=== PATIENT | female | born 1940 | race Caucasian/White ===

== ENCOUNTER → 2017-11-17 09:15 | Outpatient (CLI) | payer OTHER, SELFPAY ==
[2017-11-17 09:55] LABS: Alanine Aminotransferase 25 IU/L (9-52); Albumin Globulin Ratio 1.4 (1.0-2.8); Alkaline Phosphatase 51 U/L (38-126); Aspartate Aminotransferase 25 IU/L (14-36); BUN Creatinine Ratio 23.3 (6-22); Bilirubin Total 0.5 mg/dL (0.2-1.3); Blood Urea Nitrogen 14 mg/dL (7-17); Carbon Dioxide 30 mmol/L (22-32); Chloride 102 mmol/L (98-107); Cholesterol 173 mg/dL (140-199); Estimated Glomerular Filt Rate > 60.0 mL/min (>60); Globulin 2.8 g/dL (1.7-4.1); Glucose 83 mg/dL (80-110); HDL Cholesterol 68 mg/dL (40-60); HEMOLYSIS < 15 (0-50); LDL Cholesterol Calculated 89 mg/dL (<100); Sodium 140 mmol/L (137-145); Total Protein 6.8 g/dL (6.3-8.2); Triglycerides 80 mg/dL (35-150)
== END ==
PROVIDERS: PCP Physician Assistant; Visit Provider Physician Assistant
DX: E78.5 Hyperlipidemia, unspecified (principal)
CPT/HCPCS: 36415; 80053; 80061

== ENCOUNTER → 2018-05-04 12:11 | Outpatient (CLI) | payer OTHER, SELFPAY ==
[2018-05-04 12:46] LABS: Add Manual Diff / Slide Review NO; Basophils Percent Auto 1.1 % (0-2); Hematocrit 38.9 % (36-46); Hemoglobin 13.2 g/dL (12.0-16.0); Lymphocytes Percent Auto 38.4 % (25-40); Mean Corpuscular Hemoglobin 30.9 PG (26-34); Monocytes Percent Auto 8.9 % (3-14); Neutrophils Absolute Auto 2100 /uL (3000-5900); Neutrophils Percent Auto 43.6 % (50-75); Platelet Count 256 X10^3/uL (150-400); Red Blood Cell Count 4.28 X10^6/uL (4.0-5.2); Red Cell Distribution Width 13.8 % (11.6-14.8); White Blood Cell Count 4.9 X10^3/uL (4.5-11.0)
[2018-05-04 12:57] LABS: Alanine Aminotransferase 25 IU/L (9-52); Albumin 4.3 g/dL (3.5-5.0); Albumin Globulin Ratio 1.5 (1.0-2.8); Alkaline Phosphatase 58 U/L (38-126); Aspartate Aminotransferase 33 IU/L (14-36); BUN Creatinine Ratio 24.3 (6-22); Bilirubin Total 0.6 mg/dL (0.2-1.3); Blood Urea Nitrogen 17 mg/dL (7-17); Calcium 9.1 mg/dL (8.4-10.2); Carbon Dioxide 29 mmol/L (22-32); Chloride 104 mmol/L (98-107); Cholesterol 188 mg/dL (140-199); Estimated Glomerular Filt Rate > 60.0 mL/min (>60); Globulin 2.8 g/dL (1.7-4.1); Glucose 86 mg/dL (80-110); HDL Cholesterol 77 mg/dL (40-60); HEMOLYSIS < 15 (0-50); LDL Cholesterol Calculated 101 mg/dL (<100); Potassium 4.1 mmol/L (3.4-5.1); Sodium 145 mmol/L (137-145); Total Protein 7.1 g/dL (6.3-8.2); Triglycerides 50 mg/dL (35-150)
[2018-05-04 13:29] LABS: Thyroid Stimulating Hormone 1.85 uIU/mL (0.47-4.68)
[2018-05-04 13:46] LABS: Vitamin B12 847 pg/mL (239-931)
[2018-05-04 14:56] LABS: Vitamin D 25 Hydroxy (D3) 34.9 ng/mL (30.0-100.0)
== END ==
PROVIDERS: Family Provider Naturopath; PCP Physician Assistant; Visit Provider Physician Assistant
DX: R53.83 Other fatigue (principal); E78.5 Hyperlipidemia, unspecified
CPT/HCPCS: 36415; 80053; 80061; 82306; 82607; 84443; 85025

== ENCOUNTER → 2018-05-04 12:55 | Outpatient (CLI) | payer OTHER, SELFPAY ==
--- NOTE | 2018-05-04 12:57 | DI.RAD.S_ITS ---
PROCEDURE: XR CHEST 2V INDICATIONS: Rib pain, fatigue TECHNIQUE: 2 views of the chest were acquired. COMPARISON: Merged with [facility], CHEST 1 VIEW, 06/25/2017, 15:00. Merged with [facility], CHEST 2 VIEW, 02/13/2016, 11:24. FINDINGS: Surgical changes and devices: None. Lungs and pleura: No pleural effusions or pneumothorax. Lungs are clear. Mediastinum: Mediastinal contours are normal. Heart size is normal. Bones and chest wall: No suspicious bony abnormalities. Soft tissues appear unremarkable. IMPRESSION: Normal for age, source of current symptoms is not seen. Dictated by: Lukas Garvey M.D. on 05/04/2018 at 13:28 Approved by: Lukas Garvey M.D. on 05/04/2018 at 13:38
== END ==
PROVIDERS: Family Provider Naturopath; PCP Physician Assistant; Visit Provider Physician Assistant
DX: R07.81 Pleurodynia (principal); R53.83 Other fatigue; E78.5 Hyperlipidemia, unspecified
CPT/HCPCS: 36415; 71046; 80053; 80061; 82306; 82607; 84443; 85025

== ENCOUNTER → 2018-05-27 10:57 | Outpatient (CLI) | payer OTHER, SELFPAY ==
--- NOTE | 2018-05-27 | DI.MG.S_ITS ---
BILATERAL DIGITAL SCREENING MAMMOGRAM 3D/2D WITH CAD: 05/27/2018 CLINICAL: Routine screening. Comparison is made to exams dated: 05/24/2017 mammogram, 05/13/2016 mammogram, and 04/08/2014 mammogram - [facility]. The tissue of both breasts is heterogeneously dense. This may lower the sensitivity of mammography. Current study was also evaluated with a Computer Aided Detection (CAD) system. There are benign vascular calcifications in both breasts. There is a mole marker on both breasts. No significant masses, calcifications, or other findings are seen in either breast. There has been no significant interval change. IMPRESSION: There is no mammographic evidence of malignancy. A 1 year screening mammogram is recommended. This exam was interpreted at Station ID: [id number]. NOTE: For mammograms, a report in lay terms will be sent to the patient. Approximately 15% of breast malignancies will not be visualized mammographically. In the management of a palpable breast mass, a negative mammogram must not discourage biopsy of a clinically suspicious lesion. Electronically Signed By: Avel mayberry/christen:05/29/2018 17:28:29 letter sent: Normal Exam ACR BI-RADS Category 2: Benign Finding(s) 3342F
== END ==
PROVIDERS: PCP Physician Assistant; Visit Provider Physician Assistant
DX: Z12.31 Encounter for screening mammogram for malignant neoplasm of breast (principal)
CPT/HCPCS: 77063; 77067

== ENCOUNTER → 2018-08-11 14:49 | Outpatient (CLI) | payer OTHER, SELFPAY ==
[2018-08-11 15:30] LABS: Add Manual Diff / Slide Review NO; Basophils Absolute Auto 0 /uL (0-100); Basophils Percent Auto 0.8 % (0-2); Eosinophils Absolute Auto 400 /uL (0-450); Eosinophils Percent Auto 6.8 % (2-4); Hemoglobin 13.1 g/dL (12.0-16.0); Lymphocytes Absolute Auto 1600 /uL (1100-4500); Mean Corpuscular HGB Conc 33.6 % (30-36); Mean Corpuscular Hemoglobin 30.7 PG (26-34); Mean Corpuscular Volume 91.2 fL (80-100); Monocytes Absolute Auto 600 /uL (0-900); Monocytes Percent Auto 11.1 % (3-14); Neutrophils Absolute Auto 2800 /uL (1500-7000); Neutrophils Percent Auto 52.3 % (50-75); Platelet Count 252 X10^3/uL (150-400); Red Blood Cell Count 4.27 X10^6/uL (4.0-5.2); Red Cell Distribution Width 14.2 % (11.6-14.8); White Blood Cell Count 5.4 X10^3/uL (4.5-11.0)
[2018-08-11 15:50] LABS: Uric Acid 4.7 mg/dL (2.5-6.2)
[2018-08-11 16:06] LABS: Erythrocyte Sedimentation Rate 11 MM/HR (0-20)
[2018-08-11 16:15] LABS: C-Reactive Protein Quant < 0.5 mg/dL (<1.0); Rheumatoid Factor < 8.6 IU/mL (<12.0)
[2018-08-14 19:29] LABS: ANA Screen, IFA Negative (Negative)
== END ==
PROVIDERS: PCP Physician Assistant; Visit Provider Orthopaedic Surgery
DX: M67.442 Ganglion, left hand (principal); M18.10 Unilateral primary osteoarthritis of first carpometacarpal joint, unspecified hand
CPT/HCPCS: 36415; 84550; 85025; 85651; 86038; 86140; 86430

== ENCOUNTER → 2019-01-18 13:09 | Outpatient (CLI) | payer OTHER, SELFPAY ==
--- NOTE | 2019-01-18 | DI.MRI.S_ITS ---
PROCEDURE: MR CERVICAL SPINE WO CON INDICATIONS: FACIAL NUMBNESS TECHNIQUE: Noncontrast sagittal T1 spin echo and T2 fast spin echo, sagittal STIR, foraminal oblique sagittal T2 fast spin echo, and axial gradient echo or T2 fast spin echo through the cervical spine. COMPARISON: [facility], , C-SPINE WITHOUT CONTRAST, 08/12/2014, 17:38. FINDINGS: Image quality: Excellent. Alignment and Curvature: Straightening of the normal lordotic curvature. Grade 1 anterolisthesis of C2 on C3 and C3 on C4 Bone Marrow: Multilevel degenerative endplate sclerosis and spurring. Diffuse facet arthropathy. Spinal Cord: Visualized spinal cord has normal size and signal. No cerebellar tonsillar herniation. Paraspinous Soft Tissues: No paravertebral masses. Prevertebral soft tissues are normal in thickness. C2-C3: Ligamentum flavum hypertrophy. Mild central canal narrowing. Mild left foraminal stenosis probably unchanged. No right foraminal narrowing C3-C4: Moderate canal stenosis, with slight interval progression since the prior study. Moderate right foraminal stenosis which is mildly progressed. Unchanged mild left foraminal narrowing C4-C5: Moderate predominantly right-sided canal stenosis as before. Severe right foraminal narrowing with nerve root compression. Moderate left-sided foraminal stenosis. C5-C6: Mild to moderate canal narrowing, mild asymmetry right greater than left. This appears grossly unchanged. Severe right foraminal stenosis with nerve root compression. Moderate left foraminal narrowing C6-C7: Mild canal narrowing. Mild bilateral foraminal stenoses C7-T1: No canal stenosis. Mild bilateral foraminal narrowing IMPRESSION: Slight interval progression of moderate C3-C4 canal stenosis since the prior study. Elsewhere, grossly unchanged examination as detailed above by spinal level. Dictated by: Jann Gusman M.D. on 01/18/2019 at 15:05 Approved by: Jann Gusman M.D. on 01/18/2019 at 15:13
--- NOTE | 2019-01-18 | DI.MRI.S_ITS ---
PROCEDURE: MR HEAD/BRAIN WO CON INDICATIONS: FACIAL NUMBNESS TECHNIQUE: Non-contrast axial T1 spin echo, axial T2 fast spin echo, sagittal and axial FLAIR, coronal T2 fast spin echo, axial gradient echo, axial diffusion and ADC through the brain. COMPARISON: None. FINDINGS: Image quality: Excellent. CSF spaces: Ventricles appear symmetric in size and shape. Basal cisterns are patent. No extra-axial fluid collections. Brain: No intracranial bleeds or mass effects. There is cerebral volume loss for age. There are periventricular and deep white matter chronic small vessel ischemic changes. Brainstem appears normal. Diffusion-weighted images show no acute ischemic insults. No chronic ischemic insults. Normal intravascular flow voids are present. Skull and face: Calvarial bone marrow is normal in signal. Orbits are normal. Sinuses: Sinuses and mastoids are clear. IMPRESSION: No evidence of acute ischemia. Diffuse small white matter signal changes, probably represent chronic microvascular ischemic disease, versus statistically less likely demyelination or other infectious, inflammatory, neurodegenerative etiology, technically nonspecific. Dictated by: Jann Gusman M.D. on 01/18/2019 at 15:01 Approved by: Jann Gusman M.D. on 01/18/2019 at 15:05
== END ==
PROVIDERS: Family Provider Physician Assistant; PCP Physician Assistant; Visit Provider Physical Medicine & Rehabilitation
DX: R20.0 Anesthesia of skin (principal); M48.02 Spinal stenosis, cervical region
CPT/HCPCS: 70551; 72141

== ENCOUNTER → 2019-03-14 15:20 | Outpatient (CLI) | payer OTHER, SELFPAY ==
[2019-03-14 16:27] LABS: Hematocrit 38.3 % (36-46); Hemoglobin 12.9 g/dL (12.0-16.0); Mean Corpuscular HGB Conc 33.7 % (30-36); Mean Corpuscular Hemoglobin 30.6 PG (26-34); Mean Corpuscular Volume 90.6 fL (80-100); Platelet Count 280 X10^3/uL (150-400); Red Blood Cell Count 4.23 X10^6/uL (4.0-5.2); Red Cell Distribution Width 14.2 % (11.6-14.8); White Blood Cell Count 5.5 X10^3/uL (4.5-11.0)
[2019-03-14 17:07] LABS: BUN Creatinine Ratio 28.3 (6-22); Blood Urea Nitrogen 17 mg/dL (7-17); Calcium 9.8 mg/dL (8.4-10.2); Carbon Dioxide 30 mmol/L (22-32); Chloride 101 mmol/L (98-107); Estimated Glomerular Filt Rate > 60.0 mL/min (>60); Glucose 90 mg/dL (80-110); HEMOLYSIS < 15 (0-50); Potassium 4.6 mmol/L (3.4-5.1); Sodium 138 mmol/L (137-145)
== END ==
PROVIDERS: Family Provider Physician Assistant; PCP Physician Assistant; Visit Provider Orthopaedic Surgery Orthopaedic Surgery of the Spine
DX: Z01.818 Encounter for other preprocedural examination (principal)
CPT/HCPCS: 36415; 80048; 85027; 93005

== ENCOUNTER 2019-04-03 06:06 | Inpatient (IN) | payer OTHER, SELFPAY ==
[2019-03-28 13:32] VITALS: BMI 22.1
[2019-04-03] VITALS (20 sets, daily range): BP systolic 109–139; BP diastolic 58–78; PULSE 17–78; RESP 12–17; TEMP 36.1–36.7; O2SAT 91–98; BMI 21.2
--- NOTE | 2019-04-03 | DI.RAD.S_ITS ---
PROCEDURE: XR CERVICAL SPINE 2V OR 3V INDICATIONS: C 3-4-5-6 ACDF. TECHNIQUE: 2 view(s) of the cervical spine were acquired. COMPARISON: None. FINDINGS: Spot fluoroscopic intraoperative images demonstrating ACDF from the level of C3-C6. There is expected intraoperative alignment. Dictated by: Jann Gusman M.D. on 04/03/2019 at 11:06 Approved by: Jann Gusman M.D. on 04/03/2019 at 11:07
[2019-04-03] MEDS: LACTATED RINGERS 1,000 ML 42 ML IV ×2 (06:45→11:14)
--- NOTE | 2019-04-03 07:40 | PM.PREOP ---
Pre-operative Note Interval Note History & Physical reviewed/Exam performed by Physician: Yes Changes to H&P: No
[2019-04-03] MEDS: CEFAZOLIN 2 GM/100 ML FROZ.PIGGY IV (07:56)
--- NOTE | 2019-04-03 08:40 | SUR.OPER ---
Supine on padded OR bed, head on gel donut, arms papoosed with gel pads, draw sheet secured with towel clips. Towel roll between shoulders vertically. Taped from shoulders to foot of bed, safety belt at thigh, tape over blanket over lower legs.
--- NOTE | 2019-04-03 10:48 | P.OP_ITS ---
Operative Date/Time/Diagnoses Date of procedure: 04/03/19 Time of procedure: 08:11 Pre-op diagnosis: 1. C3-4, C4-5, C5-6 spondylolisthesis 2. C3-4, C4-5, C5-6 spinal stenosis Post-op diagnosis: same Procedure & Clinicians Procedure: 1. C3-4, C4-5, C5-6 anterior cervical diskectomy and fusion 2. C3-4, C4-5, C5-6 anterior interbody cage placement 3. C3-4, C4-5, C5-6 anterior instrumentation with plate and screw placement in C3, C4-C5-C6 vertebrae 4. Utilization of microsurgical technique and operating microscope Same procedure as scheduled: Yes Indications: Patient has been having chronic neck pain and worsening cervical radiculopathy. Patient failed multiple conservative management with worsening pain weakness and numbness in her upper extremity. Patient has been having difficulty performing activity of daily living. After discussing risks benefits of treatment options, patient elected proceed with surgery. Surgeon: Lane Stevens Cre[employer] Cutting Press Feeder: Marilin Landa Click Yes if Unassisted: No Anesthesia Type: General Operative Notes Closure Type: primary Specimen(s): none sent Prosthetic devices, grafts, tissues, transplants, or devices: Globus Extend plate, Peek cages Estimated Blood Loss (mL): 30 Blood products transfused: none Procedure in detail: Patient was seen in the preoperative area. Risks and benefits of the surgery was discussed with the patient. Operative consent was obtained and placed in the chart. Patient was then taken to the operative room. Prophylactic antibiotic was given less than 0.5 hr prior to skin incision. General anesthesia was administered. Patient was placed into a supine position on her radiolucent table. Bilateral shoulders were taped down to allow proper C- arm imaging. Anterior cervical area was prepped and draped in a sterile fashion. Time-out was performed at this time. Using lateral C-arm imaging, the level between C3 and C6 was identified and marked on patient's neck. A oblique incision from midline towards medial border of sternocleidomastoid muscle was made. The platysma muscle was incised in line with skin incision. Metzenbaum scissor was used to develop the plane between the medial border of sternocleidomastoid d and the strap muscles medially. The carotid sheath and its contents were identified and protected behind the hand- held retractor during the entire case. The plane between the carotid sheath and strap muscles was developed with Metzenbaum scissors. Dissection was made down to the level of the anterior cervical fascia. Longus colli muscle was incised on the anterior aspect of vertebral bodies bilaterally from C3-C6. Spinal needle was placed into the C3-4 disc space and confirmed with lateral C-arm imaging. Using microsurgical technique and operative microscope, anterior cervical diskectomy was performed at C3-4 C4-5 and C5-6 level. This was done by removing the disc material, removing the anterior and posterior osteophytes posterior longitudinal ligaments along with performing bilateral foraminotomies at all 3 levels. Patient was found to have severe central and foraminal stenosis at all 3 levels. Patient's stenosis was fully decompressed after decompression was completed. After the diskectomy was completed, 3 anterior interbody cages were obtained. The cages were packed with globus via cell bone grafting material. One cage each along with the bone grafting material was then packed into the interbody spaces from C3-C6 with one cage into each interbody level. After the cages were placed, the anterior cervical plate was stabilized to the C3-C6 vertebrae using 2 screws at each each level. Total 8 screws were placed. After confirming placement of the hardware with AP and lateral C-arm imaging, the screws were locked into the plate using the locking mechanism and torque limiting screwdriver. After the hardware was placed and confirmed with AP and lateral C-arm imaging, the wound was irrigated with sterile normal saline. The platysma muscle and the subcutaneous tissue was closed with 2-0 Vicryl. The skin was closed with 4-0 Monocryl and Steri-Strips. Patient tolerated the procedure well. Patient was transferred recovery room in stable condition. There were no complications. Complications: none Post-operative Condition: stable Disposition: PACU Plan for aftercare: Admit to inpatient hospital
[2019-04-03] MEDS: fentaNYL 100 MCG/2 ML INJ 50 MCG IV (11:35)
[2019-04-03] MEDS: SODIUM CHLORIDE 0.9% 1,000 ML 100 ML IV ×2 (12:24→22:24)
[2019-04-03] MEDS: HYDROMORPHONE 1 MG INJ 0.2 MG IV (12:35)
[2019-04-03] MEDS: OXYCODONE IR 5 MG TABLET PO ×2 (13:36→20:34)
[2019-04-03] MEDS: ACETAMINOPHEN 325 MG TABLET 650 MG PO ×2 (13:36→20:33)
--- NOTE | 2019-04-03 15:29 | PC.NURSE ---
Day Shift- Report rec'd from ELIJAH Flores in PACU at 1155. Pt arrived to unit at 1206 via bed into room 215 with all belongings. Pt FLAKITO, did not want her hearing aids in at this time. Oriented to call light, bed function, post op routines. Pt stated having 4-5/10 pain to back of night and mid to right shoulder. PRN IV dilaudid given at 1336 with little effect. Pt's family, son Bart and Arvin in to visit pt. After receiving prn Oxycodone at 1336 given by another RN with some food. Pt staed pain had decreased. Encouraged to have small bites of soft food and to chew well. Keep HOB elevated. Anterior gauze and tegaderm dressing CDI. Soft collar in place. Bed alarm on. Call light within reach.
[2019-04-03] MEDS: CEFAZOLIN 1 GM/50 ML FROZ.PIGGY IV ×2 (16:17→23:39)
--- NOTE | 2019-04-03 16:53 | PT.IIE ---
Current Diagnoses Other spondylosis with myelopathy, cervical region (04/03/19) Spinal stenosis, cervical region (04/03/19) Surgery Performed Operation Date: 04/03/19 07:45 Actual Procedures p C3-4, C4-5, C5-6 ACDF w/ anterior instrumentation - Lane Stevens MD Surgical History (Last Updated 03/28/19 @ 14:16 by Silvia Owens RN) H/O: hysterectomy (Acute ~1978) History of carpal tunnel surgery of left wrist (Acute ~09/2018) History of carpal tunnel surgery of right wrist (Acute ~2006) History of surgery (Acute ~2010) Hx of bilateral cataract extraction (Acute) Hx of bladder repair surgery (Acute) Hx of tonsillectomy (Acute) Hx of varicose vein stripping (Acute ~1988) Medical History (Last Updated 03/28/19 @ 14:16 by Silvia Owens RN) Arthritis (Acute) Melanoma (Acute ~2005) Physical Therapy Inpatient Evaluation/Re-Eval M1 PT/OT-IP Prior Functional Status Start: 04/03/19 12:56 Freq: NEEDED Status: Active Protocol: Document 04/03/19 16:24 AW (Rec: 04/03/19 16:52 AW [id number]) Medical Review Prior Functional Status Medical History Reviewed Yes Diet/Fluid Consistency Regular Communication Able to make needs known Mobility and Gait Pt was an independent ambulator for household distances and grocery store distances without assistive device. Activities of Daily Living and IADL's Independent Social History Household Members spouse Living Arrangements House Number of Floors (Floors) Two Floors Number of Stairs To Enter/Railing? 1 [place] with no railing. Enters on main level from garage and resides mostly on main level. 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 Her sewing room is also downstairs. There are 15 steps to the basement with left railing when going up. Home Environment High Toilet,Walk in Shower Home Equipment Front Wheel Walker,Straight Cane,Shower Seat with Backrest ,Grab Bars Near Toilet,Grab Bars In Shower Employment Status Retired Additional Social History Comment Pt lives with her spouse who has used a walker for all mobility ~5 years. Pt provides assistance to her with showering and lower body dressing. She also frequently loads and unloads his walker from the trunk. Her does the majority of the driving. M2 PT-IP Current Condition Start: 04/03/19 12:56 Freq: NEEDED Status: Active Protocol: Document 04/03/19 16:24 AW (Rec: 04/03/19 16:52 AW [id number]) Physical Therapy Current Condition Current Condition Evaluation Date 04/03/19 Treatment Diagnosis s/p C3-6 ACDF Onset Date 04/03/19 Precautions Cervical Spine Precautions Soft Collar for Comfort,No Heavy Lifting,Log Roll Brace soft collar for comfort only Weight Bearing Status Weight Bearing Status Full Weight Bearing M3 PT-IP Subjective Start: 04/03/19 12:56 Freq: NEEDED Status: Active Protocol: Document 04/03/19 16:24 AW (Rec: 04/03/19 16:52 AW [id number]) Subjective Physical Therapy Visit Type Type Initial Evaluation Visit Start Time 15:43 Visit Stop Time 16:21 Total Visit Minutes 38 Number of CARAMEL CUTTER HELPER Visits 0 Physical Therapy Visit Comments Patient Comments Pt is willing to work with therapy Patient Goals Pt hopes to return home at discharge Therapy Pain Assessment Pain When Pain Assessed At Rest Pain Present Pain Present Pain Reported Location Neck Intensity 3 Scale Used Numeric (1 - 10) Pain Management Techniques Re-positioning,Timing of Activity with Medications M4 PT-IP Mobility and Gait Start: 04/03/19 12:56 Freq: NEEDED Status: Active Protocol: Document 04/03/19 16:24 AW (Rec: 04/03/19 16:52 AW [id number]) PT-Bed Mobility Assessment Rolling Type of Rolling Log Rolling Level of Assist Contact Guard Assistance Supine to Sit Supine to Sit Contact Guard Assistance Scooting Scooting to Edge of Bed Standby Assistance PT-Transfer Assessment Sit to and From Stand Sit to and from Stand Contact Guard Assistance Equipment Transfer Assistive Device Gait Belt,Front Wheeled Walker Orthotic/Prosthetic Devices or Brace: No Transfers Transfer Destination Chair Transfer Technique Stand Step Pivot Transfer Ability Level of Assist Contact Guard Assistance Comments Mobility Comments Pt required CGA for all bed mobility and transfers. Verbal cues required for sequencing of log roll. Pt reported wooziness upon sitting. BP was 141/80 in supine, 135/76 in sitting with decreased symptoms after 2 minutes. Upon standing, pt again complained of lightheadedness. BP in standing was 126/80. Pt transferred stand step pivot with use of FWW and CGA to bedside chair. Left pt in chair, call light within reach , student nurse and nurse instructor attending to pt. RN made aware of pt's BP drop and symptoms. Also advised RN that a chair alarm would be appropriate for safety. Gait Assessment Gait Gait Assistance Required: Contact Guard Assist Distance (Feet) 2 Able to Maintain Weight Bearing Status Yes During Gait Assistive Devices Assistive Device Gait Belt,Front Wheeled Walker Orthotic/Prosthetic Devices or Brace: Yes Gait Deviations General Gait Pattern Antalgic,Decreased Stride Length,Decreased Feet Clearance,Flexed Trunk Factors Limiting Gait Function Factors Limiting Gait Function Decreased Activity Tolerance, Pain,Poor Balance Comments Gait Comments See mobility comments Stair Climbing Assessment Comments Stair Climbing Comments Not assessed. PT-Balance Assessment Sitting Balance and Reactions Static Sitting Balance Ability Good Dynamic Sitting Balance Ability Good Standing Balance and Reactions Static Standing Balance Ability Fair Dynamic Standing Balance Ability Fair Device Used FWW Comments Other Balance Tests/Deviations/Treatment Standing balance affected by : symptoms of lightheadedness. M5 PT-IP Objective Assessments Start: 04/03/19 12:56 Freq: NEEDED Status: Active Protocol: Document 04/03/19 16:24 AW (Rec: 04/03/19 16:52 AW [id number]) Orientation Orientation/Cognition Level of Alertness Alert Orientation Name,Day of Week,Place, Situation Language Function Ability No Deficits Noted Safety Awareness Decreased Safety Awareness Memory Description No Deficits Noted Comments Decreased safety awareness evident with pt requesting to use the toilet instead of BSC after experiencing lightheadedness and BP drop in standing. Gross Range of Motion Upper Extremity ROM Assessment Within Functional Limits Lower Extremity ROM Assessment Within Functional Limits Strength Upper Extremity Strength Assessment Within Functional Limits Lower Extremity Strength Assessment Within Functional Limits Coordination Assessment Gross Coordination Gross Coordination WNL Sensation Assessment Sensation Gross Sensation WNL M6 PT-IP Treatment Start: 04/03/19 12:56 Freq: NEEDED Status: Active Protocol: Document 04/03/19 16:24 AW (Rec: 04/03/19 16:52 AW [id number]) Physical Therapy Treatment Education Education Provided Precautions,Weight Bearing Status,Post-Op Packet,Safety Other Treatments Other Treatment Performed Reviewed PT plan of care and possible need for assistive device during early stages recovery due to impaired balance. M7 PT-IP Assessment and Plan Start: 04/03/19 12:56 Freq: NEEDED Status: Active Protocol: Document 04/03/19 16:24 AW (Rec: 04/03/19 16:52 AW [id number]) PT Summary Assessment and Plan Potential Rehabilitation Potential Good Status of Condition at Evaluation Evolving Summary Impairments Pain,Balance,Transfers,Gait, Activity Tolerance Assessment Summary Pt is a 79 yo woman seen on POD0 following C3-4, C4-5, C5- 6 ACDF. PLOF: Pt was independent with ambulation household and grocery store distances without use of AD. Of note, her uses a walker oyster unloader for mobility and is unable to provide much meaningful assist. Her sons have been visiting but are gone and not available to assist at discharge. Pt provides assistance to with some dressing and bathing tasks as well as transporting his walker. 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 CLOF: Pt required CGA for most mobility. She was limited at time of evaluation by drop in BP and associated lightheadedness. She will continue to require PT in this setting to further assess her gait and her ability on stairs as well as to provide further education and mobility training. Will continue to assess for discharge recommendation. Goals Bed Mobility Goal Independent Transfer Goal Standby Assistance Gait Goal Standby Assistance Gait Distance 150 Other Goals up/down 1 stair SBA Days to Meet Goals 3 Frequency of Treatment Frequency Of Treatment Twice a Day Treatment Plan Physical Therapy Treatment Plan Bed Mobility Training,Transfer Training,Gait Training, Therapeutic Exercise,Balance Retraining,Post Op Education, Discharge Planning,Hot or Cold Pack,Neuromuscular Re-ed, Coordination Retraining,Manual Therapy Other Recommendations and Next Treatment assess gait, stairs, reinforce Focus cervical post-op precautions, refine discharge recommendation Recommendations To Nursing Amount of Assist Needed 1 Person Assist Discharge Recommendations PT Discharge Recommendations Home with Assistance,Home Health,Outpatient PT Other Discharge Recommendations Home with assistance and HH vs OP PT
--- NOTE | 2019-04-03 17:33 | PC.NURSE ---
Addendum entered by Marissa Sosa 04/03/19 21:15: Patient states that the irritation in the right eye has subsided. Original Note: Eye Irritation: P: Patient complained of irritation and blurriness in her right eye. It feels like there is something there. I: This nursing home admissions director and her nursing scheduler flushed the pts eye with 5 mL of saline solution. E: Afterwards, patient stated, that the eye was feeling less irritation but still had mild blurriness. She said, I think you guys got it! Safety: Patient is sitting in a chair with a chair alarm on, call enrique within reach, and patient instructed to call for help if she needs to go back to bed.
[2019-04-03] MEDS: INFLUENZA VACCINE 0.5 ML SYRINGE IM (18:02)
--- NOTE | 2019-04-03 18:36 | CM.DANOTE ---
DCP assessment: EMR reviewed: Patient is a 79 yr old female who was admitted to for a cervical fusion surgery. PCP is Dr. Kirkland. CM met with patient at the bedside and explained CM role. Patient is alert and oriented x3 and is I at base line with all ADL's. Patient currently lives with her (Arvin)who is her DPOA. Patients is disabled and patient is her husbands primary caregiver. Currently her son Polo is here for a week to help with patients husbands care and bring patient home from the hospital . Cm asked patient what her plans were for when she D/c. Patient plans on D/C home with her son for a week. CM asked patient about HH options and patient stated she would like to think about it and discuss it with her tomorrow morning. DME: patient owns a FWW and bath bench. Patient has a two story home but lives on the top level and rents out the basement/ bottom floor on air B&B so she has no stairs she has to climb. Patient has a post op appt set up with her surgeon on april 13. OP PT will start after that. Insurance: [address] self pay Plan: D/C home with family vs D/c home with HH. patient wanted time to think about it. CM department to f/u with patient in the AM to determine if patient would like HH services at D/C. PT/OT evaluation pending. Prabha Rodriguez RN. Discharge Planning/Care Management CM Discharge Assessment Start: 04/03/19 18:31 Freq: Status: Active Protocol: Document 04/03/19 18:31 HS (Rec: 04/03/19 18:36 HS [id number]) Discharge Planning Assessment Assigned Mechanical Spreader Operator Prabha Rodriguez RN DPOA/Assigned Designee Name Arvin Smiley () Contact Information [phone] Advance Directives? Yes Advance Directives on File Yes History Provided By Patient Has Patient been admitted in last 30 No days? Prior Living Arrangements House Household Members spouse Comment patient lives with her who she cares for. Type of transporation used prior to Drives own vehicle admit Independent with ADL's Yes Is patient alert and oriented? Yes Caregiver for Another Yes: care for DME Already Rented / Owned Bath Bench,FWW / Walker Patient/Family Preference Home with Home Health,OP PT Therapy Comment Home with HH possibly. Patient wants to think about it and disscuss with her . CM department to F/U tomorrow. Discharge Plan Home with Home Health Transportation Arrangement Son Polo will transport her home at D/C If patient plan is home with home health No: need to F/U with patient : Has signed face to face form been tomorrow. completed? Medicare Choice List Provided Yes SNF/HH Preference [facility] or signature home health. Whiteboard Updated in Patient Room with Yes name and ext. # of Mechanical Spreader Operator Review Status In Process Next Review Type Continued Stay Review Pre-Anesthesia Assessment Start: 03/28/19 13:32 Freq: Status: Complete Protocol: Document 03/28/19 13:32 CAB (Rec: 03/28/19 14:24 CAB [id number]) Pre-Anesthesia Assessment Patient Information Reviewed Via Phone Assessment Assessment Completed With Patient Diagnostic Results BMP/CMP,CBC,EKG Comment Labs/EKG @ [facility] 03/14/19 Primary Care Provider Valeria Kirkland Seen Specialist in Last 12 Months Yes Specialist Seen Orthopedist Primary Language Bangladeshi Labor Expediter Required No Height 167.64 cm Weight 62.142 kg Body Mass Index (BMI) 22.1 Hearing Ability Hard of Hearing,Use of Hearing Aid Visual Assist Glasses Dentition Type Teeth, Natural Present Barriers to Learning Auditory Hx Anesthesia Reactions No Hx Family Anesthesia Reaction No Hx Malignant Hyperthermia No Hx Blood Transfusions No Anesthesia Review Requested No alcohol intake current alcohol intake frequency 0-2 drinks per day Smoking Status Never smoker Substance Use Type does not use Pain Present Pain Reported Musculoskeletal Symptoms Abnormal Gait,Difficulty Walking,Joint Stiffness, Limited Range of Motion,Neck Pain History of Falling (Recent or History of No ) Patient is completely paralyzed or No completely immobile Mental Status Oriented to own ability Is patient on oxygen? No Does patient have GUTIERREZ/SOB No Hx Sleep Apnea No CPAP/BIPAP use not prescribed Currently Taking a Beta Vida No Can You Climb a Flight of Stairs Without Yes SOB Hx Chest Pain No Hx SOB No Hx Syncope or Dizziness No Anti-Coagulant Therapy No Has a Cloth Washer Back Tender No Cardiac Testing No Hx Pacemaker/ICD No Pacemaker Rep Required? No Cardiac Clearance Received Not Applicable Diet Type At Home Regular dysphagia No Bladder Pattern Incontinent, Stress Urinary Catheter Present No Hx Urinary Self Catheterization No Diabetes No Patient No Lactating No Hx Drug Resistant Organism No Presence of External or Internal Medical Yes: Bilateral eye lens Devices Have you traveled outside the [facility] in the last 30 days? Marital Status Lives With spouse Prior Living Arrangements House Number of Floors (Floors) Two Floors Support System Child/Children,Spouse Does the Patient Have Assistance After Yes Surgery Patient Discharge Plan Description Return Home Comment Pt advised over night length of stay per surgeon Feels Safe in Current Environment Yes Been Physically Hurt or Threatened By a No Person in Current Environment Do you have thoughts of harming yourself None or others? Are you currently considering suicide? No Do you have a plan to hurt yourself or No Plan others? Do You Have Any Spiritual Beliefs That No May Affect Your HC Choices? Do You Have Any Cultural Practices That No May Affect Your HC Choices? Comment Cathol[place] Who Can We Speak to About Patient's Care Family, friends Identifying Code for Release of Patient Declines to issue Information Health Care Proxy/Next of Kin Arvin () Health Care Proxy Emergency Contact Name Arvin () Emergency Contact Advance Directives? Yes Advance Directives on File Yes Power of Nuclear Engineering Technician Yes Power of Nuclear Engineering Technician Name Arvin Smiley Power of Nuclear Engineering Technician PAC Instructions Durable medical equipment, Medications to take/avoid, Nasal antibiotic,No ETOH/ petroleum product on skin DOS, Post-op transportation,Pre- surgical wash,Sturdy shoes/ comfortable clothes,Do not bring valuables and remove jewelry
[2019-04-03] MEDS: DOCUSATE 100 MG CAPSULE PO (20:33)
[2019-04-03] MEDS: hydrOXYzine pamoate 25 MG CAPSULE PO (20:33)
[2019-04-03] MEDS: SENNOSIDES 8.6 MG TABLET 17.2 MG PO (20:34)
--- NOTE | 2019-04-04 02:47 | PC.NURSE ---
NOC note: Pt reports pain at 2/10, up to BR with SBA, drsg to neck CDI and soft collar in place. Pt given ice chips and an ice pack at this time.
[2019-04-04 05:59] VITALS: BP 100/51; PULSE 72; RESP 16; TEMP 36.9; O2SAT 96
[2019-04-04 07:50] VITALS: BP 112/65; PULSE 65; RESP 14; TEMP 36.9; O2SAT 95
--- NOTE | 2019-04-04 08:35 | PM.PNPO.1 ---
Subjective Subjective Date Patient Seen: 04/04/19 Time Patient Seen: 08:35 Interval history: Post op day 1 s/p ACDF with Dr. Stevens. No acute events overnight. Patient has no complaints. She is ambulating to the bathroom. Will ambulate with PT today. Eating without difficulty or assistance. Voiding and had a BM. Pain is well managed with tylenol and oxycodone. Muscle spasms managed with vistaril. Patient denies any numbness, tingling, fever, chills, shortness of breath, chest pain. Exam Vital Signs (past 8 hours): - 04/04/19 05:59 04/04/19 07:50 Temperature 98.4 F 98.4 F Pulse Rate 72 65 Respiratory Rate 16 14 Blood Pressure 100/51 L 112/65 Pulse Oximetry 96 95 Oxygen Delivery Method Nasal Cannula Oxygen Flow Rate 0 Narrative Exam Narrative: 79 year old female is sitting comfortably in chair eating breakfast, in no apparent distress. A&Ox3. Dressing is CDI. Muscle strength 5/5 deltoids, biceps, triceps, wrist extension, interosseous. Negative grullon's sign. Radial pulses 2+. Assessment & Plan Post-op Postoperative Procedures: Procedures Operation Date: 04/03/19 07:45 Actual Procedures Side Surgeon p C3-4, C4-5, C5-6 ACDF w/ anterior instrumentation Lane Stevens MD Quality VTE Deep Vein Thrombosis/Pulmonary Embolism Present on Admission: No
--- NOTE | 2019-04-04 08:47 | OT.IP.EVAL ---
Current Diagnoses Other spondylosis with myelopathy, cervical region (04/03/19) Spinal stenosis, cervical region (04/03/19) Surgery Performed Operation Date: 04/03/19 07:45 Actual Procedures p C3-4, C4-5, C5-6 ACDF w/ anterior instrumentation - Lane Stevens MD Past Medical History (Last Updated 03/28/19 @ 14:16 by Silvia Owens, RN) Arthritis (Acute) Melanoma (Acute ~2005) Surgical History (Last Updated 03/28/19 @ 14:16 by Silvia Owens RN) H/O: hysterectomy (Acute ~1978) History of carpal tunnel surgery of left wrist (Acute ~09/2018) History of carpal tunnel surgery of right wrist (Acute ~2006) History of surgery (Acute ~2010) Hx of bilateral cataract extraction (Acute) Hx of bladder repair surgery (Acute) Hx of tonsillectomy (Acute) Hx of varicose vein stripping (Acute ~1988) Occupational Therapy Inpatient Evaluation/Re-Eval M1 PT/OT-IP Prior Functional Status Start: 04/04/19 10:18 Freq: NEEDED Status: Active Protocol: Document 04/04/19 10:19 [facility] (Rec: 04/04/19 10:32 [facility] [id number]) Medical Review Prior Functional Status Medical History Reviewed Yes Diet/Fluid Consistency Regular Communication Able to make needs known Mobility and Gait Pt was an independent ambulator for household distances and grocery store distances without assistive device. Activities of Daily Living and IADL's Independent. Pt's does all the finances and drives. Social History Household Members spouse Living Arrangements House Number of Floors (Floors) Two Floors Number of Stairs To Enter/Railing? Per PT eval:1 ARNULFO with no railing. Enters on main level from garage and resides mostly on main level. 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 Her sewing room is also downstairs. There are 15 steps to the basement with left railing when going up. Home Environment High Toilet,Walk in Shower Home Equipment Front Wheel Walker,Straight Cane,Shower Seat with Backrest ,Grab Bars Near Toilet,Grab Bars In Shower Employment Status Retired Additional Social History Comment Pt lives with her spouse who has used a walker for all mobility ~5 years. Pt provides assistance to her with showering and lower body dressing. She also frequently loads and unloads his walker from the trunk. Her does the majority of the driving. M2 OT-IP Current Condition Start: 04/04/19 10:18 Freq: Status: Active Protocol: Document 04/04/19 10:19 [facility] (Rec: 04/04/19 10:32 [facility] [id number]) Occupational Therapy Current Condition Current Condition Evaluation Date 04/04/19 Treatment Diagnosis s/p C3-4, C4-5, C5-6 ACDF with ant. inst Diagnosis Onset Date 04/03/19 Post Operative Precautions Cervical Spine Precautions Soft Collar for Comfort,No Heavy Lifting,Log Roll M3 OT- IP Subjective and Pain Start: 04/04/19 10:18 Freq: Status: Active Protocol: Document 04/04/19 10:19 [facility] (Rec: 04/04/19 10:32 [facility] [id number]) OT- Subjective Occupational Therapy Visit Type Type Initial Evaluation Visit Start Time 08:47 Visit Stop Time 09:18 Total Visit Minutes 31 Occupational Therapy Visit Comments Patient Comments Pt willing to get up for OT eval. Patient/Caregiver Goals To go home today. OT Pain Assessment Pain When Pain Assessed At Rest Pain Present Pain Present Denied Pain M4 OT- IP ADL's Start: 04/04/19 10:18 Freq: Status: Active Protocol: Document 04/04/19 10:19 [facility] (Rec: 04/04/19 10:32 [facility] [id number]) OT ATB-Ccfj-Rjzacig General Evaluation Self-Feeding Ability Independent Comments OT Self-Feeding Comments Information given for swallowing/eating - to eat softer foods, sit upright, and to chew food thoroughly. OT ADL-Grooming General Evaluation Grooming Ability Standby Assistance Areas Needing Assistance Retrieving/Set-up of Grooming Items Comments OT Grooming Comments Pt able to auto seat cover installer front of the sink for grooming needs and able to educated to nasreen/ doff soft collar and pt able to demonstrate with good safety. OT ADL-Oral Care General Eval Oral Care Ability Independent OT ADL-Dressing General Eval Lower Body Dressing Ability Standby Assistance Comments OT Dressing Comments Educated best to sit for LB dressing needs. Pt able to nasreen/doff socks independently while sitting on the edge of the recliner. OT ADL-Toileting Comments OT Toileting Comments Pt not having to go. Pt suggested to wear pads at night , have a night light on , and to have phone/whistle to be able to call her son if needing assist. OT ADL-Bathing Comments OT Bathing Comments Pt states to shower at home. M5 OT- IP IADL's Start: 04/04/19 10:18 Freq: Status: Active Protocol: Document 04/04/19 10:19 [facility] (Rec: 04/04/19 10:32 [facility] [id number]) OT-Instrumental Activities of Daily Living Home Safety Awareness Home Safety Comments HAd to educated pt to get assist for IADl needs to avoid straining her neck ,and in addition as this time best to not try to lift 's walker into the car. Pt's son to stay for one week to assist with needs. M6 OT- IP Functional Cognition Start: 04/04/19 10:18 Freq: Status: Active Protocol: Document 04/04/19 10:19 [facility] (Rec: 04/04/19 10:32 [facility] [id number]) Cognitive Factors Limiting Selfcare Function Cognitive Ability Level of Alertness Alert Patient Orientation Name,Place,Situation Attention Span Ability Capable of Focused Attention, Capable of Sustained Attention Ability to Follow Commands Able to Follow One Step Commands Memory Description No Deficits Noted Safety Awareness Decreased Ability to Apply Precautions,Underestimates Need for Assistance Cognitive Comments Cognitive Assessment Comments Pt hard of hearing and needing reminders of cervical precautions especially for no heavy lifting at this time. OT- Vision and Hearing OT- Hearing Assessment OT- Hearing Assessment Use of Hearing Aids OT- Vision Assessment Visual Acuity Glasses For Reading M7 OT- IP Mobility and Balance Start: 04/04/19 10:18 Freq: Status: Active Protocol: Document 04/04/19 10:19 [facility] (Rec: 04/04/19 10:32 [facility] [id number]) OT-Transfer Assessment Sit to and From Stand Sit to and from Stand Standby Assistance Transfers Transfer Ability Standby Assistance Technique Transfer Destination Chair Devices Transfer Assistive Devices Gait Belt,Front Wheeled Walker Comments Mobility Comments Pt able to take a few steps without the FWW and a bit unsteady. therefore recommend FWW and PT to try 4WW. OT- Balance Assessment Sitting Balance and Reactions Static Sitting Balance Ability Normal Dynamic Sitting Balance Ability Normal Standing Balance and Reactions Static Standing Balance Ability Good M8 OT- IP Objective Assessments Start: 04/04/19 10:18 Freq: Status: Active Protocol: Document 04/04/19 10:19 [facility] (Rec: 04/04/19 10:32 [facility] [id number]) OT Gross Range of Motion Upper Extremity Range of Motion Assessment Within Functional Limits M9 OT- IP Assessment and Plan Start: 04/04/19 10:18 Freq: Status: Active Protocol: Document 04/04/19 10:19 [facility] (Rec: 04/04/19 10:32 [facility] [id number]) OT Summary Assessment and Plan Potential Rehabilitation Potential Excellent Analytic Complexity at Evaluation Low Summary OT Impairments Functional Mobility Progress Towards Goals Progressing Toward Goals Assessment Summary Pt low complexity and mainly needing reminders for cervical precautions and a little unsteady on her feet for dynamic balance. Pt to go home with son to assist today. Goals Patient/Caregiver Education Goal Demonstrate Post-Op Precautions,Caregiver Independent Assisting Patient Days to Meet Goals 1 Frequency of Treatment Frequency Of Treatment Once a Day Treatment Plan OT Treatment Plan ADL Training,Functional Mobility,Patient/Family Education,Discharge Planning Discharge Recommendations OT Discharge Recommendations Home with Assistance
[2019-04-04] MEDS: CYANOCOBALAMIN (VITAMIN B-12) 500 MCG TABLET 1000 MCG PO (09:19)
[2019-04-04] MEDS: DOCUSATE 100 MG CAPSULE PO (09:19)
[2019-04-04] MEDS: CHOLECALCIFEROL (VITAMIN D3) 1,000 UNIT TABLET 1000 UNIT PO (09:19)
[2019-04-04] MEDS: ASCORBIC ACID 500 MG TABLET 1000 MG PO (09:19)
--- NOTE | 2019-04-04 10:15 | PT.IPTN ---
Current Diagnoses Other spondylosis with myelopathy, cervical region (04/03/19) Spinal stenosis, cervical region (04/03/19) Surgery Performed Operation Date: 04/03/19 07:45 Actual Procedures p C3-4, C4-5, C5-6 ACDF w/ anterior instrumentation - Lane Stevens MD Physical Therapy Treatment Note M2 PT-IP Current Condition Start: 04/03/19 12:56 Freq: NEEDED Status: Active Protocol: Document 04/03/19 16:24 AW (Rec: 04/03/19 16:52 AW [id number]) Physical Therapy Current Condition Current Condition Evaluation Date 04/03/19 Treatment Diagnosis s/p C3-6 ACDF Onset Date 04/03/19 Precautions Cervical Spine Precautions Soft Collar for Comfort,No Heavy Lifting,Log Roll Brace soft collar for comfort only Weight Bearing Status Weight Bearing Status Full Weight Bearing M3 PT-IP Subjective Start: 04/03/19 12:56 Freq: NEEDED Status: Active Protocol: Document 04/04/19 10:10 GGD (Rec: 04/04/19 11:20 GGD [id number]) Subjective Physical Therapy Visit Type Type Treatment Note Visit Start Time 10:00 Visit Stop Time 10:14 Total Visit Minutes 14 Number of BUSINESS TRAINER Visits 1 Physical Therapy Visit Comments Patient Comments Pt up to sink with student RN M4 PT-IP Mobility and Gait Start: 04/03/19 12:56 Freq: NEEDED Status: Active Protocol: Document 04/04/19 10:10 [facility]GD (Rec: 04/04/19 11:20 GGD [id number]) PT-Transfer Assessment Sit to and From Stand Sit to and from Stand Standby Assistance Equipment Transfer Assistive Device None,Gait Belt Orthotic/Prosthetic Devices or Brace: Yes Transfers Transfer Destination Chair Transfer Ability Level of Assist Contact Guard Assistance Gait Assessment Gait Gait Assistance Required: Standby Assistance,Contact Guard Assist Distance (Feet) 270 Able to Maintain Weight Bearing Status Yes During Gait Assistive Devices Assistive Device None,Gait Belt Orthotic/Prosthetic Devices or Brace: Yes Gait Deviations General Gait Pattern Antalgic Factors Limiting Gait Function Factors Limiting Gait Function Decreased Activity Tolerance, Pain,Poor Balance Stair Climbing Assessment Evaluation Level of Assist On Stairs Contact Guard Assistance Devices Stair Climbing Assistive Devices Right Railing Technique/Endurance Stair Climbing Direction Ascend and Descend Stair Climbing Technique Step Over Step Number of Steps Climbed 3 Stair Climbing Set # Repetitions (reps) 1 M5 PT-IP Objective Assessments Start: 04/03/19 12:56 Freq: NEEDED Status: Active Protocol: Document 04/03/19 16:24 AW (Rec: 04/03/19 16:52 AW [id number]) Orientation Orientation/Cognition Level of Alertness Alert Orientation Name,Day of Week,Place, Situation Language Function Ability No Deficits Noted Safety Awareness Decreased Safety Awareness Memory Description No Deficits Noted Comments Decreased safety awareness evident with pt requesting to use the toilet instead of BSC after experiencing lightheadedness and BP drop in standing. Gross Range of Motion Upper Extremity ROM Assessment Within Functional Limits Lower Extremity ROM Assessment Within Functional Limits Strength Upper Extremity Strength Assessment Within Functional Limits Lower Extremity Strength Assessment Within Functional Limits Coordination Assessment Gross Coordination Gross Coordination WNL Sensation Assessment Sensation Gross Sensation WNL M6 PT-IP Treatment Start: 04/03/19 12:56 Freq: NEEDED Status: Active Protocol: Document 04/04/19 10:10 GGD (Rec: 04/04/19 11:20 GGD [id number]) Physical Therapy Treatment Education Education Provided Precautions,Safety M7 PT-IP Assessment and Plan Start: 04/03/19 12:56 Freq: NEEDED Status: Active Protocol: Document 04/04/19 10:10 GGD (Rec: 04/04/19 11:20 GGD [id number]) PT Summary Assessment and Plan Summary Assessment Summary Pt improving with balance and safety. She was able to progress gait distance. She is safe and stable with stair mobility. Pt safe for home D/C when medically stable. Frequency of Treatment Frequency Of Treatment Twice a Day Treatment Plan Physical Therapy Treatment Plan Bed Mobility Training,Transfer Training,Gait Training, Therapeutic Exercise,Balance Retraining,Post Op Education, Discharge Planning,Hot or Cold Pack,Neuromuscular Re-ed, Coordination Retraining,Manual Therapy Recommendations To Nursing Amount of Assist Needed 1 Person Assist Discharge Recommendations PT Discharge Recommendations Home with Assistance
--- NOTE | 2019-04-04 10:58 | P.DS_ITS ---
History of Present Illness History of Present Illness Date Patient Seen: 04/04/19 Time Patient Seen: 10:58 Chief complaint: [id number] C3-6 ACDF Narrative: Post op day 1 s/p ACDF with Dr. Stevens. No acute events overnight. Patient has no complaints. She is ambulating to the bathroom. Will ambulate with PT today. Eating without difficulty or assistance. Voiding and had a BM. Pain is well managed with tylenol and oxycodone. Muscle spasms managed with vistaril. Patient denies any numbness, tingling, difficulty swallowing, hoarseness, fever, chills, shortness of breath, chest pain. Discharge Providers Provider Date of admission: 04/03/19 06:06 Discharge Date: 04/04/19 Primary care physician: Valeria Kirkland PA-C Consults: 04/03/19 12:11 Consult to Occupational Therapy Evaluate & Treat Comment: Physician Instructions: Evaluate and treat Consult to Physical Therapy Evaluate & Treat Comment: Physician Instructions: Evaluate and Treat 04/04/19 10:24 Consult to Home Health Routine Comment: D/C [facility] on 04-04-19 Reason For Exam: Home health for PT/fitter type bar and segment provider: Shalini Avery PA-C Summary Hospital Course Discharge Diagnosis: s/p ACDF hyperlipidemia history of malignant neoplasm of skin spinal stenosis of cervical region achalasia of esophagus history of adenomatous polyp of colon wears hearing aid hearing loss impacted cerumen of left ear osteoarthritis of fingers of both hands mass of finger of left hand Hospital Course: Patient admitted to hospital s/p ACDF with Dr. Stevens. Post op day 1 patient was ready for discharge home with home health. Hospital course was u nremarkable. Patient will be at home with her disabled spouse and requires assistance. Patient ambulating with PT prior to discharge. Patient eating and voiding without difficulty or assistance prior to discharge. Pain well controlled with tylenol. Status at Discharge Cognitive/behavioral status at discharge: oriented and at baseline, oriented Functional status at discharge: uses cane/walker Overall status at discharge: patient is progressing back to baseline Time Spent with Patient Time spent: Less than 30 minutes Exam Vital Signs (past 8 hours): - 04/04/19 05:59 04/04/19 07:50 Temperature 98.4 F 98.4 F Pulse Rate 72 65 Respiratory Rate 16 14 Blood Pressure 100/51 L 112/65 Pulse Oximetry 96 95 Oxygen Delivery Method Nasal Cannula Oxygen Flow Rate 0 Narrative Exam Narrative: 79 year old female is sitting comfortably in chair eating breakfast, in no apparent distress. A&Ox3. Anterior neck dressing is CDI. Soft collar in place. Able to actively dorsiflex/plantar flex b/l. Dorsalis pedis 2+ b/l. Capillary refill <2seconds. Sensory function grossly intact to light touch in UE/LE bl. Muscle strength 5/5 deltoids, biceps, triceps, wrist extension, interosseous. Negative grullon's sign. Radial pulses 2+. Discharge Plan Discharge Plan Patient Disposition: Home Health Service Discharge Med Rec/Prescriptions Prescriptions: Continued cholecalciferol (vitamin D3) 2,000 unit tablet 1,000 unit PO DAILY RF: 0 cyanocobalamin (vitamin B-12) [Vitamin B-12] 1,000 mcg tablet 1,000 mcg PO DAILY RF: 0 Ashwagandha 500 mg PO BID RF: 0 coenzyme Q10 [Co Q-10] 200 mg capsule 200 mg PO DAILY RF: 0 ascorbic acid (vitamin C) 500 MG tablet 1,000 mg PO QDAY Qty: 0 RF: 0 oxybutynin chloride 5 mg tablet 5 mg PO QDAYP PRN (Reason: Incontinence) Qty: 90 RF: 0 acetaminophen [Tylenol Extra Strength] 500 mg Tablet 1,000 mg PO Q4H PRN (Reason: Pain) RF: 0 melatonin 3 mg Capsule 3 mg PO BEDTIME PRN (Reason: sleep) RF: 0 Follow up/Referrals: Valeria Kirkland PA-C [Primary Care Provider] - Lane Stevens MD [Physician] - Provider Discharge Instructions Diet: Regular Activity: no excessive bending, twisting, lifting. soft collar for comfort Skin/Wound/Dressing Care Report to your healthcare provider any signs of infection, such as:: chills, fever, increased pain, unusual drainage and unusual redness Dressing: keep dressing dry and in place until post-op appointment. if dressing becomes soaked please contact the office. Visit Report/Discharge Packet Stand Alone Forms: Surgery Discharge Visit Report Forms: Patient Portal/API, Stroke Signs & Symptoms Discharge Data Primary Care Provider: Valeria Kirkland Quality VTE Deep Vein Thrombosis/Pulmonary Embolism Present on Admission: No
--- NOTE | 2019-04-04 11:58 | CM.DPC ---
DCP/Continued: Reviewed chart. Received call from Dr. Stevens's office from Tonya. She reports that patient has called the office requesting to have home health at time of d/c. HH not typically ordered by Dr. Stevens therefore, PLATER HELPER asked Tonya to double check with Dr. Stevens on whether or not he agrees to order for patient. Tonya called PLATER HELPER back and reports that Dr. Stevens is in agreement for patient to have HH for RN/PT. Verbal order obtained for both. F2F completed and signed by . Met with patient to confirm plan. She agrees to HH for short amount of time. Patient has no preference in HH agencies therefore, referral made to [facility] from CM rotation calendar. PLATER HELPER spoke with [facility] and he reports that they can accept referral. JOSESITO/Laurie asked to fax clinical, order, and F2F to [facility] . P: Home today with [facility] . Patient provided with brochure. Ortho/PA notified of discussion with Dr. Stevens's office. RAMÓN Unger
[2019-04-04] MEDS: ACETAMINOPHEN 325 MG TABLET 650 MG PO (12:05)
== END 2019-04-04 12:15 | disposition home health service (06) | DRG 472 ==
PROVIDERS: Admitting Provider Orthopaedic Surgery Orthopaedic Surgery of the Spine; Family Provider Physician Assistant; PCP Physician Assistant; Visit Provider Orthopaedic Surgery Orthopaedic Surgery of the Spine
PROC: 0RG20A0 Fusion of 2 or more Cervical Vertebral Joints with Interbody Fusion Device, Anterior Approach, Anterior Column, Open Approach (ICD-10-PCS; principal; 2019-04-03 07:45)
DX: M48.02 Spinal stenosis, cervical region (principal); M47.12 Other spondylosis with myelopathy, cervical region
CPT/HCPCS: 72040; 76000; 90471; 90656; 97116; 97161; 97165; 97530; C1776; J0330; J0690; J1100; J1170; J2250; J2405; J2704; J3010; Q2038

== ENCOUNTER → 2019-06-01 11:52 | Outpatient (CLI) | payer OTHER, SELFPAY ==
[2019-04-03 12:41] VITALS: BMI 21.2
--- NOTE | 2019-06-01 | DI.MG.S_ITS ---
BILATERAL DIGITAL SCREENING MAMMOGRAM 3D/2D WITH CAD: 06/01/2019 CLINICAL: Routine screening. Comparison is made to exams dated: 05/27/2018 mammogram, 05/24/2017 mammogram, and 05/13/2016 mammogram - [facility]. The tissue of both breasts is heterogeneously dense. This may lower the sensitivity of mammography. Current study was also evaluated with a Computer Aided Detection (CAD) system. There is a possible 0.7 cm asymmetry in the right breast middle depth central to the nipple seen on the craniocaudal view only. This is more prominent. No other significant masses, calcifications, or other findings are seen in either breast. IMPRESSION: INCOMPLETE: NEEDS ADDITIONAL IMAGING EVALUATION The possible 0.7 cm asymmetry in the right breast is indeterminate. Additional views with possible ultrasound are recommended. This exam was interpreted at Station ID: [id number]. NOTE: For mammograms, a report in lay terms will be sent to the patient. Approximately 15% of breast malignancies will not be visualized mammographically. In the management of a palpable breast mass, a negative mammogram must not discourage biopsy of a clinically suspicious lesion. Electronically Signed By: Michael grant/christen:06/01/2019 13:05:56 letter sent: Additional Imaging Needed ACR BI-RADS Category 0: Incomplete 3340F
== END ==
PROVIDERS: Family Provider Physician Assistant; PCP Physician Assistant; Visit Provider Physician Assistant
DX: Z12.31 Encounter for screening mammogram for malignant neoplasm of breast (principal)
CPT/HCPCS: 77063; 77067

== ENCOUNTER → 2019-06-21 14:04 | Outpatient (CLI) | payer OTHER, SELFPAY ==
[2019-04-03 12:41] VITALS: BMI 21.2
--- NOTE | 2019-06-21 | DI.MG.S_ITS ---
UNILATERAL RIGHT DIGITAL DIAGNOSTIC MAMMOGRAM 3D/2D WITH ADDITIONAL VIEWS: 06/21/2019 CLINICAL: Additional evaluation requested from prior study. Comparison is made to exams dated: 06/01/2019 mammogram, 05/27/2018 mammogram, and 05/24/2017 mammogram - [facility]. The tissue of right breast is heterogeneously dense. This may lower the sensitivity of mammography. Previously noted possible 0.7 cm asymmetry in the right breast middle depth central to the nipple seen on the craniocaudal view only on comparison screening mammogram of 06/01/19 resolves and has the appearance of benign fibroglandular tissues on additional views. There are right breast vascular calcifications. A circular mole marker overlies the right breast. No significant masses, calcifications, or other findings are seen in the breast. IMPRESSION: INCOMPLETE: NEEDS ADDITIONAL IMAGING EVALUATION Previously noted possible 0.7 cm asymmetry in the right breast middle depth central to the nipple seen on the craniocaudal view only on comparison screening mammogram of 06/01/19 resolves and has the appearance of benign fibroglandular tissues on additional views. A targeted ultrasound is recommended and will be performed immediately following this exam. This exam was interpreted at Station ID: [id number]. NOTE: For mammograms, a report in lay terms will be sent to the patient. Approximately 15% of breast malignancies will not be visualized mammographically. In the management of a palpable breast mass, a negative mammogram must not discourage biopsy of a clinically suspicious lesion. Electronically Signed By: Avel Briceño M.D. ecl/:06/21/2019 14:54:51 ACR BI-RADS Category 0: Incomplete 3340F
--- NOTE | 2019-06-21 14:05 | DI.US.S_ITS ---
LIMITED ULTRASOUND OF RIGHT BREAST: 06/21/2019 CLINICAL: Additional evaluation requested from prior study. Comparison is made to exams dated: 06/21/2019 mammogram, 06/01/2019 mammogram, 05/27/2018 mammogram, 05/24/2017 mammogram, and 05/13/2016 mammogram - [facility]. Color flow ultrasound of the right breast 12-1 o'clock, 5-6 o'clock, and retroareolar regions was performed. Wallis scale images of the real-time examination were reviewed. There is minimal diffuse retroareolar ductal ectasia without other underlying breast mass or abnormality identified. There is no ultrasound correlate for the previously noted possible 0.7 cm asymmetry in the right breast middle depth central to the nipple seen on the craniocaudal view only on comparison screening mammogram of 06/01/19 which also resolved and had the appearance of benign fibroglandular tissues on additional views performed immediately prior to this exam on 06/21/2019. IMPRESSION: BENIGN There is no sonographic evidence of malignancy in the imaged areas of the right breast. Return to annual screening mammography schedule is recommended. The patient is advised to monitor her breasts and to return sooner for re-evaluation should she feel anything grow or change. This exam was interpreted at Station ID: [id number]. Electronically Signed By: Avel Briceño M.D. ecl/:06/21/2019 15:24:35 letter sent: Normal Exam Ultrasound BI-RADS: 2 Benign
== END ==
PROVIDERS: Family Provider Physician Assistant; PCP Physician Assistant; Visit Provider Physician Assistant
DX: R92.8 Other abnormal and inconclusive findings on diagnostic imaging of breast (principal)
CPT/HCPCS: 76642; 77065; G0279

== ENCOUNTER → 2019-08-10 07:53 | Outpatient (CLI) | payer OTHER, SELFPAY ==
[2019-04-03 12:41] VITALS: BMI 21.2
[2019-08-10 08:47] LABS: Hematocrit 38.2 % (36-46); Mean Corpuscular Hemoglobin 30.5 PG (26-34); Mean Corpuscular Volume 89.8 fL (80-100); Platelet Count 289 X10^3/uL (150-400); Red Blood Cell Count 4.25 X10^6/uL (4.0-5.2); Red Cell Distribution Width 13.5 % (11.6-14.8)
[2019-08-10 08:58] LABS: Alanine Aminotransferase 15 IU/L (<35); Albumin 4.2 g/dL (3.5-5.0); Albumin Globulin Ratio 1.3 (1.0-2.8); Alkaline Phosphatase 89 U/L (38-126); Aspartate Aminotransferase 25 IU/L (14-36); BUN Creatinine Ratio 28.3 (6-22); Bilirubin Total 0.4 mg/dL (0.2-1.3); Blood Urea Nitrogen 17 mg/dL (7-17); Calcium 9.6 mg/dL (8.4-10.2); Carbon Dioxide 27 mmol/L (22-32); Chloride 105 mmol/L (98-107); Cholesterol 277 mg/dL (140-199); Estimated Glomerular Filt Rate > 60.0 mL/min (>60); Globulin 3.2 g/dL (1.7-4.1); Glucose 103 mg/dL (80-110); HDL Cholesterol 55 mg/dL (40-60); HEMOLYSIS < 15 (0-50); LDL Cholesterol Calculated 203 mg/dL (<100); Sodium 139 mmol/L (137-145); Total Protein 7.4 g/dL (6.3-8.2); Triglycerides 95 mg/dL (35-150)
== END ==
PROVIDERS: Family Provider Physician Assistant; PCP Nurse Practitioner Family; Referring Provider Nurse Practitioner Family; Visit Provider Nurse Practitioner Family
DX: Z00.00 Encounter for general adult medical examination without abnormal findings (principal); Z13.6 Encounter for screening for cardiovascular disorders
CPT/HCPCS: 36415; 80053; 80061; 85027

== ENCOUNTER → 2019-08-15 08:57 | Outpatient (CLI) | payer OTHER, SELFPAY ==
[2019-04-03 12:41] VITALS: BMI 21.2
[2019-08-15 10:21] LABS: Cholesterol 286 mg/dL (140-199); HDL Cholesterol 66 mg/dL (40-60); LDL Cholesterol Calculated 202 mg/dL (<100); Triglycerides 88 mg/dL (35-150)
== END ==
PROVIDERS: Family Provider Physician Assistant; PCP Nurse Practitioner Family; Referring Provider Nurse Practitioner Family; Visit Provider Nurse Practitioner Family
DX: E78.2 Mixed hyperlipidemia (principal)
CPT/HCPCS: 36415; 80061

== ENCOUNTER → 2019-11-21 08:49 | Outpatient (CLI) | payer OTHER, SELFPAY ==
[2019-04-03 12:41] VITALS: BMI 21.2
[2019-11-21 10:42] LABS: Cholesterol 155 mg/dL (140-199); HDL Cholesterol 71 mg/dL (40-60); LDL Cholesterol Calculated 71 mg/dL (<100); Triglycerides 63 mg/dL (35-150)
== END ==
PROVIDERS: Family Provider Physician Assistant; PCP Nurse Practitioner Family; Referring Provider Nurse Practitioner Family; Visit Provider Nurse Practitioner Family
DX: E78.5 Hyperlipidemia, unspecified (principal)
CPT/HCPCS: 36415; 80061

== ENCOUNTER → 2020-06-05 13:01 | Outpatient (CLI) | payer OTHER, SELFPAY ==
[2019-04-03 12:41] VITALS: BMI 21.2
--- NOTE | 2020-06-05 | DI.MG.S_ITS ---
BILATERAL DIGITAL SCREENING MAMMOGRAM 3D/2D WITH CAD: 06/05/2020 CLINICAL: Routine screening. Comparison is made to exams dated: 06/01/2019 mammogram, 05/27/2018 mammogram, and 05/24/2017 mammogram - [facility]. The tissue of both breasts is heterogeneously dense. This may lower the sensitivity of mammography. Current study was also evaluated with a Computer Aided Detection (CAD) system. No significant masses, calcifications, or other findings are seen in either breast. There has been no significant interval change. IMPRESSION: NEGATIVE There is no mammographic evidence of malignancy. A 1 year screening mammogram is recommended. This exam was interpreted at Station ID: [id number]. NOTE: For mammograms, a report in lay terms will be sent to the patient. Approximately 15% of breast malignancies will not be visualized mammographically. In the management of a palpable breast mass, a negative mammogram must not discourage biopsy of a clinically suspicious lesion. Electronically Signed By: Timoteo beckwith/christen:06/05/2020 14:41:12 letter sent: Normal Exam ACR BI-RADS Category 1: Negative [id number]
== END ==
PROVIDERS: Family Provider Physician Assistant; PCP Nurse Practitioner Family; Referring Provider Nurse Practitioner Family; Visit Provider Nurse Practitioner Family
DX: Z12.31 Encounter for screening mammogram for malignant neoplasm of breast (principal)
CPT/HCPCS: 77063; 77067

== ENCOUNTER → 2020-07-04 12:04 | Outpatient (CLI) | payer MEDICARE, SELFPAY ==
[2019-04-03 12:41] VITALS: BMI 21.2
[2020-07-04] MEDS: COVID-19 VACC #1, MRNA(MOD) 100 MCG/0.5 ML VIAL IM (12:09)
== END ==
PROVIDERS: Family Provider Physician Assistant; PCP Nurse Practitioner Family; Visit Provider Internal Medicine
DX: Z23 Encounter for immunization (principal)
CPT/HCPCS: 0011A; 91301

== ENCOUNTER → 2020-08-01 12:38 | Outpatient (CLI) | payer MEDICARE, SELFPAY ==
[2019-04-03 12:41] VITALS: BMI 21.2
[2020-08-01] MEDS: COVID-19 VACC #2, MRNA(MOD) 100 MCG/0.5 ML VIAL IM (12:43)
== END ==
PROVIDERS: Family Provider Physician Assistant; PCP Nurse Practitioner Family; Visit Provider Internal Medicine
DX: Z23 Encounter for immunization (principal)
CPT/HCPCS: 0012A; 91301

== ENCOUNTER → 2020-09-02 09:58 | Outpatient (CLI) | payer OTHER, SELFPAY ==
[2019-04-03 12:41] VITALS: BMI 21.2
[2020-09-02 10:45] LABS: Hematocrit 39.2 % (36-46); Hemoglobin 12.9 g/dL (12.0-16.0); Mean Corpuscular HGB Conc 32.8 % (30-36); Mean Corpuscular Hemoglobin 30.1 PG (26-34); Mean Corpuscular Volume 91.8 fL (80-100); Platelet Count 246 X10^3/uL (150-400); Red Blood Cell Count 4.27 X10^6/uL (4.0-5.2); White Blood Cell Count 5.1 X10^3/uL (4.5-11.0)
[2020-09-02 11:26] LABS: Alanine Aminotransferase 17 IU/L (<35); Albumin 4.1 g/dL (3.5-5.0); Albumin Globulin Ratio 1.3 (1.0-2.8); Alkaline Phosphatase 68 U/L (38-126); Aspartate Aminotransferase 27 IU/L (14-36); BUN Creatinine Ratio 28.8 (6-22); Bilirubin Total 0.4 mg/dL (0.2-1.3); Blood Urea Nitrogen 17 mg/dL (7-17); Calcium 9.6 mg/dL (8.4-10.2); Carbon Dioxide 29 mmol/L (22-32); Chloride 105 mmol/L (98-107); Cholesterol 196 mg/dL (140-199); Estimated Glomerular Filt Rate > 60.0 mL/min (>60); Globulin 3.1 g/dL (1.7-4.1); Glucose 94 mg/dL (80-110); HDL Cholesterol 63 mg/dL (40-60); HEMOLYSIS < 15 (0-50); LDL Cholesterol Calculated 116 mg/dL (<100); Potassium 4.3 mmol/L (3.4-5.1); Sodium 140 mmol/L (137-145); Total Protein 7.2 g/dL (6.3-8.2); Triglycerides 87 mg/dL (35-150)
== END ==
PROVIDERS: Family Provider Physician Assistant; PCP Nurse Practitioner Family; Referring Provider Nurse Practitioner Family; Visit Provider Nurse Practitioner Family
DX: E78.5 Hyperlipidemia, unspecified (principal); F32.9 Major depressive disorder, single episode, unspecified; F41.9 Anxiety disorder, unspecified
CPT/HCPCS: 36415; 80053; 80061; 85027

== ENCOUNTER → 2021-01-05 10:20 | Outpatient (CLI) | payer OTHER, SELFPAY ==
[2020-09-18 15:16] VITALS: BMI 21.2
[2021-01-05 11:48] LABS: COVID19 -Nasal RAPID Negative (Negative)
== END ==
PROVIDERS: Family Provider Physician Assistant; PCP Nurse Practitioner Family; Visit Provider Physician Assistant
DX: Z01.812 Encounter for preprocedural laboratory examination (principal); Z20.822 Contact with and (suspected) exposure to COVID-19
CPT/HCPCS: 87635

== ENCOUNTER 2021-01-06 09:08 | Outpatient (CLI) | payer OTHER, SELFPAY ==
[2020-09-18 15:16] VITALS: BMI 21.2
[2021-01-06] VITALS (9 sets, daily range): BP systolic 110–122; BP diastolic 66–77; PULSE 55–74; RESP 14–17; TEMP 36.5; O2SAT 92–98
--- NOTE | 2021-01-06 09:10 | DI.RAD.S_ITS ---
PROCEDURE: PAIN C/T FACET INJ/BLK 1ST L INDICATIONS: SPINAL STENOSIS COMPARISON: [facility], CR, XR CERVICAL SPINE 2 OR 3 VIEWS, 03/27/2020, 14:38. FINDINGS: Fluoroscopic spot filming was performed to verify placement of a spinal needle at the C2-C3 level on the left, as labeled on the films. Appropriate location of the needle tip was confirmed by injection of iodinated contrast. IMPRESSION: Intraprocedural examination within normal limits. Dictated by: Rex Mcmanus M.D. on 01/06/2021 at 9:53 Approved by: Rex Mcmanus M.D. on 01/06/2021 at 9:53
[2021-01-06] MEDS: MIDAZOLAM 5 MG/5 ML VIAL IV (10:15)
[2021-01-06] MEDS: BUPIVACAINE 0.5% (PF) VIAL 2 ML INJ (10:18)
[2021-01-06] MEDS: IOPAMIDOL 15 ML VIAL 3 ML INJ (10:18)
[2021-01-06] MEDS: DEXAMETHASONE 10 MG/ML VIAL INJ (10:19)
--- NOTE | 2021-01-06 10:30 | P.PCN_ITS ---
Date/Time/Diagnoses Date of procedure: 01/06/21 Time of procedure: 10:30 Pre-procedure diagnosis: 1. FACET ARTHROPATHY 2. AXIAL NECK PAIN Post-procedure diagnosis: same Procedure Notes Procedure: 1. FLUOROSCOPICALLY GUIDED, CONTRAST-CONTROLLED LEFT C4/5, C5/6 FACET JOINT INJECTIONS WITH CONSCIOUS SEDATION. Indications: Heidi is referred by RIVKA Lewis for treatment of Axial Neck Pain Physician: Reggie Santos Total Fluoroscopy time (seconds): 13 Total sedation minutes: 12 Complications: none Procedure in detail & Post-procedure care: DESCRIPTION OF PROCEDURE Fluoroscopically guided, contrast-controlled left C2/3 facet joint injections with conscious sedation. Following review of allergy and review of potential side effects and complications, including, but not necessarily limited to, infection, allergic reaction, local tissue breakdown, stroke, temporary or permanent nerve injury and paralysis, the patient indicated that the patient understood and agreed to proceed. An informed consent document was signed by the patient, witnessed by a nurse, and placed in the patient's chart. Additionally, other treatment options including medications, modalities, and physical therapy were reviewed with the patient. After review of previous anaesthesic history and IV conscious sedation the patient was deemed safe to proceed with today?s procedure with IV conscious sedation as ASA class II designation. Safety time-out was performed to confirm patient ID, procedure to be performed and site of procedure. IV sedation was accomplished with a combination of 2mg of Versed was administered by the RN after DO order, titrated to patient comfort during the course of the procedure while the patient remained responsive to all verbal commands In the prone position, following sterile prep and drape of the cervical spine region, the posterior aspect of the left C2/3 facet joints were identified fluoroscopically. The skin was anesthetized via a 25-gauge 1.5-inch needle with 1% lidocaine solution into the corresponding facet joints. At this point, a 25- gauge 2.5-inch spinal needle was atraumatically introduced and advanced under fluoroscopic guidance into the corresponding facet joints. Following negative aspiration, injections of approximately 0.2-cc of Isovue 200 confirmed interarticular placement without vascular uptake. At this point, a total of 1cc including 0.5cc or 5mg of dexamethasone combined with 0.5cc of 1% lidocaine solution was injected without complication into each of the corresponding facet joints. The patient tolerated the procedure well without signs or symptoms of complications prior to transfer to the recovery area continued monitoring without incident. The patient was then transferred to the recovery area where they were observed for an appropriate period of time after the injection. The patient reported a VAS score of 7 prior to the procedure and a post- procedure VAS of 0. POST OP INSTRUCTIONS They were provided a Pain Log to continue to record their response to the target-specific procedure prior to their follow-up visit with their referring physician. Additionally, specific post-injection care instructions and a contact number to our office were provided if concerns arise regarding possible complications associated with the procedure are suspected.
== END 2021-01-06 11:00 | disposition home or self-care (01) ==
LOC: RAD 09:10
PROVIDERS: Family Provider Physician Assistant; PCP Nurse Practitioner Family; Referring Provider Physical Medicine & Rehabilitation; Visit Provider Physical Medicine & Rehabilitation
DX: M47.812 Spondylosis without myelopathy or radiculopathy, cervical region (principal); M54.2 Cervicalgia
CPT/HCPCS: 64490; 99152; J1100; J2250; J3010

== ENCOUNTER 2021-01-27 16:54 | Emergency (ER) | payer OTHER, SELFPAY ==
[2020-09-18 15:16] VITALS: BMI 21.2
[2021-01-27 17:01] VITALS: BP 132/73; PULSE 79; RESP 16; TEMP 36.6; O2SAT 98
--- NOTE | 2021-01-27 19:20 | PC.NURSE ---
Patient reports hot flashes and chills for several months. Reports unable to get in touch with PCM. Reports that she stopped her gabapentin because within 30 seconds of taking would start profusely sweating, same with trospium. Also reports steroid injection 1 month ago in left shoulder. Reports nothing has stopped hot flashes and resulting chills.
--- NOTE | 2021-01-27 20:13 | ED.ALLEREA ---
HPI - Allergic Reaction General Chief complaint: Allergic Reaction Stated complaint: LIGHT HEADED, COLD, HOT FLASHES Time Seen by Provider: 01/27/21 19:21 Source: patient Mode of arrival: Ambulatory Limitations: no limitations History of Present Illness HPI narrative: 80-year-old Female with early onset of dementia presenting today with night sweats ongoing for a number of weeks. She was started on gabapentin for chronic ongoing neck pain she thought that that was it so she stopped gabapentin earlier this month she continues to have night sweats. Her states that she does have sweating episodes causing her to take off her clothes and then she is freezing cold 10 minutes later. This is any continuing ongoing problem. She denies any fever, no cough abdominal pain nausea vomiting painful or frequent urination, no weight loss of weight gain. No other symptoms. She is quite convinced that it is medication related. She has try to get into her primary care provider but is unable to. Related Data Home Medications Medication Instructions Recorded Confirmed ascorbic acid (vitamin C) 500 mg 1,000 mg PO QDAY #0 04/21/16 11/24/20 tablet cholecalciferol (vitamin D3) 50 1,000 unit PO DAILY 05/03/18 11/24/20 mcg (2,000 unit) tablet cyanocobalamin (vitamin B-12) 1,000 mcg PO DAILY 05/03/18 11/24/20 1,000 mcg tablet (Vitamin B-12) coenzyme Q10 200 mg capsule (Co 200 mg PO DAILY 05/15/18 11/24/20 Q-10) acetaminophen 500 mg tablet 1,000 mg PO Q4H PRN 03/28/19 11/24/20 (Tylenol Extra Strength) melatonin 3 mg capsule 3 mg PO BEDTIME PRN 04/03/19 11/24/20 biotin 10,000 mcg capsule mcg PO 09/11/20 11/24/20 mecobalamin (vitamin B12) 1,000 1,000 mcg PO DAILY 09/11/20 11/24/20 mcg chewable tablet Previous Rx's Medication Instructions Recorded ipratropium bromide 42 mcg (0.06 2 spray INTRANASAL TID #15 ml 08/26/20 %) nasal spray rosuvastatin 20 mg tablet 20 mg PO DAILY #90 tab 09/26/20 celecoxib 200 mg capsule (Celebrex) 200 mg PO DAILY #30 cap 11/24/20 gabapentin 300 mg capsule 300 mg PO .COMPLEX #90 cap 11/24/20 donepezil 10 mg tablet 10 mg PO BEDTIME #30 tab 12/17/20 mirabegron 25 mg tablet,extended 25 mg PO Q24H #30 tab 12/17/20 release 24 hr trospium 20 mg tablet 20 mg PO DAILY #30 tab 01/02/21 Allergies Allergy/AdvReac Type Severity Reaction Status Date / Time propoxyphene AdvReac Severe (DARVON) Verified 11/24/20 15:16 DROWSINESS Review of Systems Review of Systems ROS Unobtainable: All systems reviewed & are unremarkable except as noted in HPI and below Constitutional Constitutional: Denies body ache(s), Reports chills, Reports excessive sweating, Denies weight gain, Denies weight loss and Reports other (night sweats) ENT Ears, Nose, Mouth, and Throat: Denies dizziness and Denies sinus pain Cardiovascular Cardiovascular: Denies chest pain, Denies syncope and Denies dyspnea on exertion Respiratory Respiratory: Denies dyspnea on exertion Gastrointestinal Gastrointestinal: Denies abdominal pain, Denies nausea and Denies vomiting Musculoskeletal Musculoskeletal: Denies arthralgias Integumentary/Breasts Skin/Breast: Denies rash Neurologic Neurologic: Denies dizziness, Denies syncope and Denies localized weakness Endocrine Endocrine: Reports as per HPI and Reports excessive sweating Patient History Medical History (Updated 01/27/21 @ 20:35 by Elmira Haider DO) Acne Allergies (~1959) Anemia Anxiety Arthritis Carpal tunnel syndrome (~09/2018) Chicken pox Chronic neck pain (03/2019) Dementia (2018) Depression Facet arthropathy, cervical Irregular menstrual cycle Measles Melanoma (~2005) Memory loss Mumps Stress incontinence Trigger thumb of left hand (04/2019) Urinary symptom or sign Vision disorder Surgical History (Updated 11/24/20 @ 15:59 by Reggie Santos DO) Anesthesia H/O spinal fusion (03/2019) H/O: hysterectomy (~1978) History of carpal tunnel surgery of left wrist (~09/2018) History of carpal tunnel surgery of right wrist (~2006) History of cervical spinal arthrodesis History of surgery (~2010) Hx of bilateral cataract extraction Hx of bladder repair surgery Hx of tonsillectomy Hx of varicose vein stripping (~1988) Skin cancer (~07/2005) Family History Father History of heart disease Mother Mental health problem Stroke Brother Mental health problem Grandfather Cancer Social History household members: spouse Smoking Status: Never smoker second hand exposure: Yes (I haven't been for 18 years. Also my father was a chainsmoker) alcohol intake: current substance use type: does not use Smoking Status: Never smoker alcohol intake frequency: a few times a week Substance Use Type: does not use Exam Initial Vital Signs Initial Vital Signs: Vital Signs Temperature 97.9 F 01/27/21 17:01 Pulse Rate 79 01/27/21 17:01 Respiratory Rate 16 01/27/21 17:01 Blood Pressure 132/73 01/27/21 17:01 Pulse Oximetry 98 01/27/21 17:01 GENERAL: Alert pleasant well-appearing 80-year-old female HEENT: Head atraumatic,EOMI, pupils reactive, face symmetric, moist mucous membranes CARDIOVASCULAR: Regular rate and rhythm without murmurs, rubs or gallops. RESPIRATORY: Breath sounds equal bilaterally, no wheezes rales or rhonchi. ABDOMEN: Soft, nontender. Normoactive bowel sounds all 4 quadrants. No guarding or rebound. EXTREMITIES: Normal range of motion, no clubbing or edema. Neurovascularly intact NEUROLOGICAL: Alert and oriented x4.Normal gait and speech. SKIN: Warm, dry, no laceration, no petechiae, no rashes or lesions. Course Orders Ordered: ED Orders 01/27/21 20:44 Complete Blood Count AUTO DIFF Stat Comprehensive Metabolic Panel Stat Vital Signs Vital signs: Vital Signs - 8 hr 01/27/21 22:40 Pulse Rate 61 Respiratory Rate 18 Blood Pressure 148/70 H Pulse Oximetry 96 MDM - Allergic Reaction Lab Data Attestation: I reviewed the patient's lab results. Result diagrams: 01/27/21 20:44 01/27/21 20:44 Labs: Lab Results 01/27/21 01/27/21 Range/Units 20:44 20:44 WBC 5.4 (4.5-11.0) X10^3/uL RBC 4.14 (4.0-5.2) X10^6/uL Hgb 12.5 (12.0-16.0) g/dL Hct 37.7 (36-46) % MCV 91.1 (80-100) fL MCH 30.1 (26-34) PG MCHC 33.1 (30-36) % RDW 14.0 (11.6-14.8) % Plt Count 248 (150-400) X10^3/uL Neut % (Auto) 50.5 (50-75) % Lymph % (Auto) 34.6 (25-40) % [place] % (Auto) 10.4 (3-14) % Eos % (Auto) 4.0 (2-4) % Baso % (Auto) 0.5 (0-2) % Neut # (Auto) 2700 (6514-1721) /uL Lymph # (Auto) 1900 (7466-9472) /uL [place] # (Auto) 600 (0-900) /uL Eos # (Auto) 200 (0-450) /uL Baso # (Auto) 0 (0-100) /uL Sodium 140 (137-145) mmol/L Potassium 4.1 (3.4-5.1) mmol/L Chloride 106 (98-107) mmol/L Carbon Dioxide 30 (22-32) mmol/L BUN 17 (7-17) mg/dL Creatinine 0.60 (0.52-1.04) mg/dL Estimated GFR > 60.0 (>60) mL/min BUN/Creatinine Ratio 28.3 H (6-22) Glucose 89 (80-110) mg/dL Calcium 9.6 (8.4-10.2) mg/dL Total Bilirubin 0.3 (0.2-1.3) mg/dL AST 35 (14-36) IU/L ALT 20 (<35) IU/L Alkaline Phosphatase 69 (38-126) U/L Total Protein 7.2 (6.3-8.2) g/dL Albumin 4.2 (3.5-5.0) g/dL Globulin 3.0 (1.7-4.1) g/dL Albumin/Globulin Ratio 1.4 (1.0-2.8) MDM Narrative Medical decision making narrative: The patient overall appears well. She has had symptoms ongoing for a number of weeks. She is currently afebrile no infectious symptoms at this time and she is afebrile in the ED. At this time medications have been reviewed I do not see a cause of diaphoresis for gabapentin, benazepril,trospium. Initial concern for leukemia ulna with ongoing night sweats however cbc and CMP are overall reassuring. At this time I recommend she follow-up with her primary care provider for any further for evaluation. I recommended patient restart her medications as previously prescribed Discharge Plan Departure Patient Disposition: Home Clinical Impression: Chronic night sweats Instructions: DI for Adverse Drug Reaction -- Allergic Activity Restrictions/Additional Instructions: *You have been diagnosed with night sweats *What to do: At this time blood work is overall reassuring. No no sign of infection. I have looked up side effects of posterior medication it does not appear to be 1 of those. Please follow-up with your primary care provider more of a full workup *Continue to take medications as directed *Follow up with your primary care provider in 2-3 days *Return to ER if you should have cough, painful or frequent urination, abdominal pain or any new, worsening or concerning symptoms Prescriptions: No Action cholecalciferol (vitamin D3) 2,000 unit tablet 1,000 unit PO DAILY RF: 0 cyanocobalamin (vitamin B-12) [Vitamin B-12] 1,000 mcg tablet 1,000 mcg PO DAILY RF: 0 coenzyme Q10 [Co Q-10] 200 mg capsule 200 mg PO DAILY RF: 0 ascorbic acid (vitamin C) 500 MG tablet 1,000 mg PO QDAY Qty: 0 RF: 0 ipratropium bromide 42 mcg (0.06 %) spray,non-aerosol 2 spray intranasal TID Qty: 15 RF: 1 rosuvastatin 20 mg tablet 20 mg PO DAILY Qty: 90 RF: 2 donepezil 10 mg tablet 10 mg PO BEDTIME Qty: 30 RF: 0 mirabegron 25 mg tablet extended release 24 hr 25 mg PO Q24H Qty: 30 RF: 1 trospium 20 mg tablet 20 mg PO DAILY Qty: 30 RF: 2 biotin 10,000 mcg capsule PO RF: 0 mecobalamin (vitamin B12) 1,000 mcg tablet,chewable 1,000 mcg PO DAILY RF: 0 acetaminophen [Tylenol Extra Strength] 500 mg Tablet 1,000 mg PO Q4H PRN (Reason: Pain) RF: 0 melatonin 3 mg Capsule 3 mg PO BEDTIME PRN (Reason: sleep) RF: 0 celecoxib [Celebrex] 200 mg capsule 200 mg PO DAILY Qty: 30 RF: 2 gabapentin 300 mg capsule 300 mg PO .COMPLEX Qty: 90 RF: 2 Referrals: Archana Lewis ARNP [Primary Care Provider] -
[2021-01-27 20:57] LABS: Add Manual Diff / Slide Review NO; Basophils Absolute Auto 0 /uL (0-100); Basophils Percent Auto 0.5 % (0-2); Eosinophils Absolute Auto 200 /uL (0-450); Hematocrit 37.7 % (36-46); Hemoglobin 12.5 g/dL (12.0-16.0); Lymphocytes Absolute Auto 1900 /uL (1100-4500); Lymphocytes Percent Auto 34.6 % (25-40); Mean Corpuscular HGB Conc 33.1 % (30-36); Mean Corpuscular Hemoglobin 30.1 PG (26-34); Mean Corpuscular Volume 91.1 fL (80-100); Monocytes Absolute Auto 600 /uL (0-900); Monocytes Percent Auto 10.4 % (3-14); Neutrophils Absolute Auto 2700 /uL (1500-7000); Neutrophils Percent Auto 50.5 % (50-75); Platelet Count 248 X10^3/uL (150-400); Red Blood Cell Count 4.14 X10^6/uL (4.0-5.2); White Blood Cell Count 5.4 X10^3/uL (4.5-11.0)
[2021-01-27 21:13] LABS: Alanine Aminotransferase 20 IU/L (<35); Albumin 4.2 g/dL (3.5-5.0); Albumin Globulin Ratio 1.4 (1.0-2.8); Alkaline Phosphatase 69 U/L (38-126); Aspartate Aminotransferase 35 IU/L (14-36); BUN Creatinine Ratio 28.3 (6-22); Bilirubin Total 0.3 mg/dL (0.2-1.3); Blood Urea Nitrogen 17 mg/dL (7-17); Calcium 9.6 mg/dL (8.4-10.2); Carbon Dioxide 30 mmol/L (22-32); Chloride 106 mmol/L (98-107); Estimated Glomerular Filt Rate > 60.0 mL/min (>60); Glucose 89 mg/dL (80-110); HEMOLYSIS < 15 (0-50); Potassium 4.1 mmol/L (3.4-5.1); Sodium 140 mmol/L (137-145); Total Protein 7.2 g/dL (6.3-8.2)
[2021-01-27 22:40] VITALS: BP 148/70; PULSE 61; RESP 18; O2SAT 96
== END 2021-01-27 22:41 | disposition home or self-care (01) ==
PROVIDERS: Emergency Provider Emergency Medicine; Family Provider Physician Assistant; PCP Nurse Practitioner Family
DX: R61 Generalized hyperhidrosis (principal); F03.90 Unspecified dementia, unspecified severity, without behavioral disturbance, psychotic disturbance, mood disturbance, and anxiety
CPT/HCPCS: 36415; 80053; 85025; 99281; 99283

== ENCOUNTER → 2021-02-05 13:52 | Outpatient (CLI) | payer OTHER, SELFPAY ==
[2020-09-18 15:16] VITALS: BMI 21.2
--- NOTE | 2021-02-05 13:55 | DI.RAD.S_ITS ---
PROCEDURE: XR CHEST 2V INDICATIONS: night sweats without fever TECHNIQUE: 2 views of the chest were acquired. COMPARISON: [facility], , XR CHEST 2V, 05/04/2018, 13:06. FINDINGS: Surgical changes and devices: None. Lungs and pleura: Lungs are clear. No pleural effusions or pneumothorax. Mediastinum: Mediastinal contours are normal. Heart size is normal. Bones and chest wall: No suspicious bony abnormalities. Soft tissues appear unremarkable. IMPRESSION: No acute pulmonary process. Dictated by: Marli Del Valle M.D. on 02/05/2021 at 15:35 Approved by: Marli Del Valle M.D. on 02/05/2021 at 15:37
[2021-02-05 14:08] LABS: Bacteria Urine None Seen; WBC Urine None Seen (0-5/HPF)
[2021-02-05 14:19] LABS: Appearance Urine UA CLEAR; Bilirubin Urine UA NEGATIVE (NEGATIVE); Color Urine UA YELLOW; Glucose Urine UA NEGATIVE (Negative); Ketones Urine UA NEGATIVE (NEGATIVE); Leukocyte Esterase Urine UA NEGATIVE (NEGATIVE); Nitrite Urine UA NEGATIVE (Negative); Occult Blood Urine UA 1+ (Negative); Protein Urine UA NEGATIVE (Negative); Specific Gravity Urine UA 1.015 (1.000-1.035); Urobilinogen Urine UA 0.2 E.U./dL (0.2)
[2021-02-05 14:26] LABS: Culture Indicated Urine Cult Not Indicated; RBC Urine 1-5/HPF (0-5/HPF)
[2021-02-05 14:36] LABS: C-Reactive Protein Quant < 0.5 mg/dL (<1.0)
[2021-02-05 15:17] LABS: Vitamin B12 > 1000 pg/mL (239-931)
[2021-02-05 15:18] LABS: TSH w/ Reflex to FT4 0.03 uIU/mL (0.47-4.68)
[2021-02-05 15:42] LABS: Free T4, Direct Thyroxine 0.91 ng/dL (0.78-2.19)
== END ==
PROVIDERS: Family Provider Physician Assistant; PCP Nurse Practitioner Family; Referring Provider Nurse Practitioner Family; Visit Provider Nurse Practitioner Family
DX: R61 Generalized hyperhidrosis (principal)
CPT/HCPCS: 36415; 71046; 81001; 82607; 84439; 84443; 86140

== ENCOUNTER → 2021-02-26 14:45 | Outpatient (CLI) | payer OTHER, SELFPAY ==
[2020-09-18 15:16] VITALS: BMI 21.2
[2021-02-26 15:39] LABS: Appearance Urine UA CLEAR; Bilirubin Urine UA NEGATIVE (NEGATIVE); Color Urine UA YELLOW; Glucose Urine UA NEGATIVE (Negative); Ketones Urine UA TRACE (NEGATIVE); Leukocyte Esterase Urine UA NEGATIVE (NEGATIVE); Nitrite Urine UA NEGATIVE (Negative); Occult Blood Urine UA NEGATIVE (Negative); Protein Urine UA NEGATIVE (Negative); Specific Gravity Urine UA 1.015 (1.000-1.035); Urobilinogen Urine UA 0.2 E.U./dL (0.2)
[2021-02-26 15:58] LABS: pH Urine UA 6.5 (4.5-8.0)
[2021-02-26 16:00] LABS: Bacteria Urine None Seen; Culture Indicated Urine Cult Not Indicated; RBC Urine None Seen (0-5/HPF); WBC Urine None Seen (0-5/HPF)
== END ==
PROVIDERS: Family Provider Physician Assistant; PCP Nurse Practitioner Family; Referring Provider Nurse Practitioner Family; Visit Provider Nurse Practitioner Family
DX: R79.89 Other specified abnormal findings of blood chemistry (principal); R31.9 Hematuria, unspecified
CPT/HCPCS: 36415; 81001; 84443

== ENCOUNTER → 2021-03-17 12:32 | Outpatient (CLI) | payer OTHER, SELFPAY ==
[2020-09-18 15:16] VITALS: BMI 21.2
[2021-03-17 15:33] LABS: COVID19 -Nasal RAPID Negative (Negative)
== END ==
PROVIDERS: Family Provider Physician Assistant; PCP Nurse Practitioner Family; Referring Provider Physical Medicine & Rehabilitation; Visit Provider Physical Medicine & Rehabilitation
DX: Z20.822 Contact with and (suspected) exposure to COVID-19 (principal)
CPT/HCPCS: 87635; C9803

== ENCOUNTER 2021-03-19 08:44 | Outpatient (CLI) | payer OTHER, SELFPAY ==
[2020-09-18 15:16] VITALS: BMI 21.2
[2021-03-19] VITALS (8 sets, daily range): BP systolic 106–130; BP diastolic 66–80; PULSE 68–75; RESP 12–20; TEMP 36.3; O2SAT 94–97
--- NOTE | 2021-03-19 08:45 | DI.RAD.S_ITS ---
PROCEDURE: PAIN C/T INTERLAMINAR INJECT INDICATIONS: SPINAL STENOSIS COMPARISON: [facility], XA, PAIN C/T FACET INJ/BLK 1ST L, 01/06/2021, 10:19. FINDINGS: Fluoroscopic spot filming was performed to verify placement of a spinal needle at the C6-C7 level, as labeled on the films. Appropriate location of the needle tip was confirmed by injection of iodinated contrast. IMPRESSION: No significant intraprocedural abnormality. Dictated by: Rex Mcmanus M.D. on 03/19/2021 at 9:36 Approved by: Rex Mcmanus M.D. on 03/19/2021 at 9:36
[2021-03-19] MEDS: MIDAZOLAM 5 MG/5 ML VIAL IV (09:45)
--- NOTE | 2021-03-19 10:05 | P.PCN_ITS ---
Date/Time/Diagnoses Date of procedure: 03/19/21 Time of procedure: 10:06 Pre-procedure diagnosis: 1. CERVICAL STENOSIS, 2. CERVICAL HNP WITH UPPER EXTREMITY RADICULAR FEATURES Post-procedure diagnosis: same Procedure Notes Procedure: 1. FLUORSCOPICALLY GUIDED CONTRAST CONTROLLED INTERLAMINAR EPIDURAL STEROID INJECTION - C6/7 TL ROSALINA Indications: Heidi is referred by RIVKA Lewis for treatment of Cervical HNP with Upper Extremity Paresthesias. Physician: Reggie Santos Total Fluoroscopy time (seconds): 24 Total sedation minutes: 15 Complications: none Procedure in detail & Post-procedure care: FINDINGS Cervical Stenosis due to disc deterioration and nerve root irritation and nerve root irritation DESCRIPTION OF PROCEDURE Fluoroscopically guided, contrast-controlled C6/7 translaminar epidural steroid injection with conscious sedation. Following review of allergy and review of potential side effects and complications, including, but not necessarily limited to, infection, allergic reaction, local tissue breakdown, temporary as well as permanent nerve injury, stroke, paralysis, and possible , the patient indicated that patient understood and agreed to proceed. An informed consent document was signed by the patient, witnessed by a nurse, and placed in the patient's chart. Additionally, other treatment options including modalities, medications, and physical therapy were reviewed with the patient. After review of previous anaesthesic history and IV conscious sedation the patient was deemed safe to proceed with today?s procedure with IV conscious sedation as ASA class II designation. Safety time-out was performed to confirm patient ID, procedure to be performed and site of procedure. IV sedation was accomplished with a combination of 2mg of Versed administered by the RN after DO order, titrated to patient comfort during the course of the procedure while the patient remained responsive to all verbal commands. In the prone position, following sterile prep and drape of the cervical region, the C6/7 translaminar space was identified fluoroscopically. The skin was anesthetized via a 25-gauge 1.5-inch needle with 1% lidocaine solution. At this point, a 25-gauge, 2.5-inch short bevel spinal needle was atraumatically introduced and advanced under fluoroscopic guidance into epidural space at the C6/7 translaminar space. Depth was confirmed on lateral view. Radiological data, including multiple fluoroscopic views of the cervical spine, reveal a spinal needle at the C6/7 translaminar space. Lateral views then show placement of the needle in the epidural space. Subsequent views show contrast material flowing superiorly and inferiorly in the epidural space. DSA fluoroscopy with live contrast injection, once again, confirmed no vascular or intrathecal uptake. At this point, using loss of resistance technique with saline and air, the epidural space was entered. Following negative aspiration, injection of approximately 1.5 cc of Isovue-200 with live fluoroscopy in the AP view confirmed epidural flow in the epidural space without vascular or intrathecal uptake observed. Subsequently, a test dose of 1 cc of 1% lidocaine solution was injected and patient was observed for two minutes without signs or symptoms of complications, including abdominal pain, shortness of breath, bilateral upper or lower extremity weakness, nausea and vomiting, prior to steroid injection. At this point, 3cc or 30mg of dexamethasone was then injected without incident. The patient tolerated the procedure well without signs or symptoms of compli cations prior to being transferred to the recovery area for further monitoring, The patient was then transferred to the recovery area where they were observed for an appropriate period of time after the injection. The patient reported a VAS score of 6 prior to the procedure and a post-procedure VAS of 0. POST OP INSTRUCTIONS The patient was provided a Pain Log to continue to record their response to the target-specific procedure prior to follow-up visit with the referring provider. Additionally, specific post-injection care instructions and a contact number to our office were provided if concerns arise regarding possible complications associated with the procedure are suspected.
[2021-03-19] MEDS: IOPAMIDOL 15 ML VIAL INJ (10:16)
[2021-03-19] MEDS: BUPIVACAINE 0.25% (PF) VIAL 2 ML INJ (10:16)
[2021-03-19] MEDS: DEXAMETHASONE 10 MG/ML VIAL 30 MG INJ (10:17)
== END 2021-03-19 10:25 | disposition home or self-care (01) ==
LOC: RAD 08:45
PROVIDERS: Family Provider Physician Assistant; PCP Nurse Practitioner Family; Referring Provider Physical Medicine & Rehabilitation; Visit Provider Physical Medicine & Rehabilitation
DX: M48.02 Spinal stenosis, cervical region (principal); M50.123 Cervical disc disorder at C6-C7 level with radiculopathy
CPT/HCPCS: 62321; 99152; J0702; J1100; J2250; J3010

== ENCOUNTER → 2021-10-08 09:11 | Outpatient (CLI) | payer OTHER, SELFPAY ==
[2021-04-15 14:02] VITALS: BMI 21.2
[2021-10-08 10:50] LABS: Add Manual Diff / Slide Review NO; Basophils Absolute Auto 0 /uL (0-100); Basophils Percent Auto 0.8 % (0-2); Eosinophils Absolute Auto 200 /uL (0-450); Eosinophils Percent Auto 5.2 % (2-4); Hematocrit 37.8 % (36-46); Hemoglobin 12.7 g/dL (12.0-16.0); Lymphocytes Absolute Auto 1300 /uL (1100-4500); Lymphocytes Percent Auto 30.3 % (25-40); Mean Corpuscular HGB Conc 33.7 % (30-36); Mean Corpuscular Hemoglobin 30.4 PG (26-34); Monocytes Absolute Auto 500 /uL (0-900); Monocytes Percent Auto 10.6 % (3-14); Neutrophils Absolute Auto 2300 /uL (1500-7000); Neutrophils Percent Auto 53.1 % (50-75); Platelet Count 231 X10^3/uL (150-400); Red Cell Distribution Width 13.7 % (11.6-14.8); White Blood Cell Count 4.3 X10^3/uL (4.5-11.0)
[2021-10-08 11:09] LABS: Erythrocyte Sedimentation Rate 11 MM/HR (0-20)
[2021-10-08 11:13] LABS: Alanine Aminotransferase 17 IU/L (<35); Albumin 4.2 g/dL (3.5-5.0); Albumin Globulin Ratio 1.4 (1.0-2.8); Alkaline Phosphatase 60 U/L (38-126); Aspartate Aminotransferase 31 IU/L (14-36); Bilirubin Total 0.5 mg/dL (0.2-1.3); Blood Urea Nitrogen 17 mg/dL (7-17); C-Reactive Protein Quant < 0.5 mg/dL (<1.0); Calcium 9.1 mg/dL (8.4-10.2); Carbon Dioxide 31 mmol/L (22-32); Chloride 106 mmol/L (98-107); Cholesterol 144 mg/dL (140-199); Estimated Glomerular Filt Rate > 60 mL/min (>60); Globulin 2.9 g/dL (1.7-4.1); Glucose 89 mg/dL (80-110); HDL Cholesterol 70 mg/dL (40-60); HEMOLYSIS < 15 (0-50); LDL Cholesterol Calculated 60 mg/dL (<100); Potassium 3.7 mmol/L (3.4-5.1); Sodium 141 mmol/L (137-145); Total Protein 7.1 g/dL (6.3-8.2); Triglycerides 68 mg/dL (35-150)
[2021-10-08 11:45] LABS: TSH w/ Reflex to FT4 0.06 uIU/mL (0.47-4.68)
[2021-10-08 12:00] LABS: Vitamin B12 > 1000 pg/mL (239-931)
[2021-10-08 12:12] LABS: Free T4, Direct Thyroxine 1.08 ng/dL (0.78-2.19)
== END ==
PROVIDERS: Family Provider Physician Assistant; PCP Family Medicine; Referring Provider Family Medicine; Visit Provider Family Medicine
DX: D64.9 Anemia, unspecified (principal); I10 Essential (primary) hypertension; R53.83 Other fatigue; E78.5 Hyperlipidemia, unspecified; R23.2 Flushing
CPT/HCPCS: 36415; 80053; 80061; 82607; 84439; 84443; 85025; 85651; 86140

== ENCOUNTER → 2021-10-29 15:16 | Outpatient (CLI) | payer OTHER, SELFPAY ==
[2021-04-15 14:02] VITALS: BMI 21.2
--- NOTE | 2021-10-29 15:19 | DI.RAD.S_ITS ---
PROCEDURE: XR HIP W PEL IF DONE OSIEL MIN 4V INDICATIONS: low back pain radiating into hips TECHNIQUE: AP pelvis with lateral view(s) of the right and left hip(s). COMPARISON: None. FINDINGS: Bones: No fractures or dislocations. Pelvic ring appears intact. No suspicious bony lesions. Bilateral hip osseous hypertrophy, joint space narrowing, subchondral sclerosis and subchondral cyst formation. Moderate degenerative disc changes noted in the lower lumbar spine. Soft tissues: The visualized bowel gas pattern is normal. No suspicious soft tissue calcifications. IMPRESSION: Severe bilateral hip osteoarthritis. Dictated by: Chica Ronquillo MD, PhD on 10/29/2021 at 16:52 Approved by: Chica Ronquillo MD, PhD on 10/29/2021 at 16:52
--- NOTE | 2021-10-29 15:19 | DI.RAD.S_ITS ---
PROCEDURE: XR LUMBAR SPINE 2-3V INDICATIONS: low back pain TECHNIQUE: 3 views of the lumbar spine were acquired. COMPARISON: None. FINDINGS: Bones: 5 [id number] vertebrae are present. There is normal bony alignment. No vertebral body compression fractures. No suspicious bony lesions. Moderate L3-L4, L4-L5 and L5-S1 degenerative disc disease. Mild L1-L2 and L2-L3 degenerative disc disease. Mild L3-L4, L4-L5 and L5-S1 facet arthropathy. Soft tissues: Overlying bowel gas pattern is normal. No suspicious soft tissue calcifications. IMPRESSION: 1. Multilevel degenerative disc disease. 2. Multilevel facet arthropathy. 3. No fracture. No acute osseous lesion. If symptoms and/or clinical suspicion for pathology persists, evaluation with MRI should be considered for further assessment. Dictated by: Chica Ronquillo MD, PhD on 10/29/2021 at 16:51 Approved by: Chica Ronquillo MD, PhD on 10/29/2021 at 16:51
[2021-10-29 18:55] LABS: Free T3, Triiodothyronine Free 2.84 pg/mL (2.77-5.27); Free T4, Direct Thyroxine 0.94 ng/dL (0.78-2.19)
[2021-10-29 19:09] LABS: Thyroid Stimulating Hormone < 0.015 uIU/mL (0.47-4.68)
== END ==
PROVIDERS: Family Provider Physician Assistant; PCP Family Medicine; Referring Provider Family Medicine; Visit Provider Family Medicine
DX: R79.89 Other specified abnormal findings of blood chemistry (principal); M54.50 Low back pain, unspecified; M51.36 Other intervertebral disc degeneration, lumbar region; M47.816 Spondylosis without myelopathy or radiculopathy, lumbar region; M16.0 Bilateral primary osteoarthritis of hip
CPT/HCPCS: 36415; 72100; 73522; 84439; 84443; 84481